=== PATIENT | male | born 1955 | race Caucasian/White ===

== ENCOUNTER 2018-08-06 22:26 | Inpatient (IN) ==
--- NOTE | 2018-08-06 23:24 | PROVIDER DOCUMENTATION ---
HPI-General Adult - General Chief Complaint: Edema Stated Complaint: EXTREMITY SWELLING Time Seen by Provider: 08/06/18 23:01 Source: patient Allergies/Adverse Reactions: Patient Allergies Allergy/AdvReac Type Severity Reaction Status Date / Time No Known Allergies Allergy Verified 08/06/18 22:47 Home Medications: Home Medication List Medication Instructions Recorded Confirmed Last Taken Type Diltiazem HCl [Diltiazem ER] 180 mg PO HS 03/19/17 03/19/17 03/18/17 History 180 MG Losartan/Hctz [Hyzaar 100/12.5 mg 08/06/18 08/06/18 Unknown History Tab] - History of Present Illness -Gen Adult Nature of Presenting Problems: Right neck/shoulder swelling since Thursday. No fever, dyspnea, dysphasia, weightloss, cp, cough. Brother has history of lymphoma. Location of Pain/Injury: reports: none Pain Radiation: reports: no radiation Quality of Pain: reports: none Onset/Duration: reports: 6 days ago Timing: reports: getting worse Context/Activities at Onset: reports: none Modifying Factors: worse with: nothing Associated Symptoms: denies: anxiety, chest pain, cough, diarrhea, dizziness, fatigue, headaches, joint pain, muscle aches, sinus congestion/drainage, nausea , shortness of breath, syncope, vomiting Similar Symptoms Previously?: No Recently seen or treated by another doctor?: No Review of Systems - Adult - REVIEW OF SYSTEMS - ADULT Constitutional: reports: no symptoms reported Eyes: reports: no symptoms reported Ears, Nose, Mouth & Throat: reports: no symptoms reported Cardiovascular: reports: no symptoms reported Respiratory: reports: no symptoms reported Gastrointestinal: reports: no symptoms reported Genitourinary: reports: no symptoms reported Musculoskeletal: reports: no symptoms reported Integumentary: reports: no symptoms reported Neurological: reports: no symptoms reported Psychiatric: reports: no symptoms reported Endocrine: reports: no symptoms reported Hematologic/Lymphatic: reports: swollen lymph nodes Allergic/Immunologic: reports: no symptoms reported All Other Systems: Reviewed and Negative Past History - Adult - PAST MEDICAL HISTORY-ADULT Review of Records: reports: Old Records Reviewed, Nursing Assessment Review, Medications Reviewed, Social history reviewed & non-contributory. Major Childhood Illnesses: reports: denies history Cardiovascular: reports: HTN Respiratory: reports: denies history Gastrointestinal: reports: denies history Obstetrical/Gynecological: reports: denies history Genitourinary: reports: denies history Musculoskeletal: reports: denies history Neurological: reports: denies history Psychiatric: reports: other (mental illness unknown etiology) Endocrine/Immune: reports: denies history Other Conditions: reports: denies history - IMMUNIZATION STATUS Childhood Immunizations: See Nurse Assessment Flu Vaccine: See Nurse Assessment - FAMILY HISTORY Family History: reviewed, not pertinent - SOCIAL HISTORY Smoking: denies Substance Use: none/never Alcohol Use Frequency: never Living Situation: family Physical Exam-General - PHYSICAL EXAM-ADULT Initial Vital Signs Reviewed: Yes - CONSTITUTIONAL General Appearance: appears well, alert, no apparent distress - EYES Eyes: pink conjunctivae - HEAD, EARS, NOSE, MOUTH & THROAT HENMT: normocephalic/atraumatic, moist mucous membranes, pharynx normal - NECK Neck: supple, other (severe swelling to right neck, supraclavicular region) - RESPIRATORY Respiratory: lungs clear, normal breath sounds - CARDIOVASCULAR Cardiovascular: normal peripheral pulses, regular rate, rhythm - GASTROINTESTINAL (ABDOMEN) Abdominal Exam: non tender, soft, no organomegaly. negative: distended - MUSCULOSKELETAL Back Exam: normal inspection Extremity: normal gait - SKIN Integumentary: normal color, normal turgor, warm/dry - NEUROLOGIC Neurologic: grossly normal - PSYCHIATRIC Psych/Mental Status: normal thought content Progress - PLAN OF CARE/RESULTS Progress/Plan/Lab Results: Vital Signs - 8 hr 08/06/18 22:41 Temperature 98.6 F Pulse Rate 79 Respiratory Rate 16 Blood Pressure 118/71 O2 Sat by Pulse Oximetry 94 L Orders Category Date Time Status Saline Loc DIRECTED Care 08/06/18 23:[address] NECK W/CONTRAST [CT] Stat Exams 08/06/18 23:[address] THORAX W/CONTRAST [CT] Stat Exams 08/06/18 23:10 Ordered AMYLASE [CHEM] Stat Lab 08/06/18 23:10 Ordered CBC WITH ELECTRONIC DIFF [HEME] Stat Lab 08/06/18 23:10 Ordered COMPREHENSIVE METABOLIC PANEL [CHEM] Stat Lab 08/06/18 23:10 Ordered checked patient who is resting comfortably, plan to transfer to [facility] where they provide surgical and oncology services to further evaluate for possible malignancy vs other Result Diagrams: 08/06/18 23:15 08/06/18 23:15 - CT/MRI 1 CT Study: Neck Impression: Abnormal (severe adenopathy; neck lesions, internal jugular vein compression) 2 CT Study: Thorax Impression: Abnormal (right cervical lymphadenopathy.) - CONSULTS/PCP/HOSPITALIST Notification #1 *Consult/PCP/Hospitalist*: Dr. Hennessy, hospitalist [facility] Time Discussed: 03:20 Reason/Comments: admit to [facility] when bed is available Consult Disposition: Admit - CHANGE OF SHIFT REPORT (ED Provider) Report Given and Care Transferred to:: Dr. Pimentel Time of Transfer: 02:23 Items Pending: Physician Consult/Arrival Departure - Departure Date of Disposition Decision: 08/07/18 Time of Disposition Decision: 03:25 DIAGNOSIS: Lymphadenopathy of right cervical region, Neck mass Leukocytosis Qualifiers: Leukocytosis type: unspecified Qualified Code(s): D72.829 - Elevated white blood cell count, unspecified Disposition: ADMITTED INPATIENT 09 Certified Medical Emergency: Emergent Condition: Stable Referrals and Follow-Ups: Jose Rafael Zhang MD [Primary Care Provider] - - Critical Care Note This patient required my direct & personal management of CC.: No Attestation - Physician/ ZAKI Attestation Patient care was provided by Advanced Practice Provider:: Yes Advanced Practice Provider:: Harman Huddleston Advanced Practice Provider documentation review:: The Mid-level provider documentation, treatment plan and medical decision making was reviewed by the physician who agrees with all treatment and medical decision making by the P. The physician spent face to face time with patient:: Yes Advanced Practice Provider documentation review:: Supervising physician onsite and consulted in the evaluation and care of this patient. The physician did have a face to face encounter with the patient.
[2018-08-06 23:56] LABS: BASO# 0.02 X1000 (0.0-0.2); BASO% 0.1 % (0.0-0.8); EOS% 3.7 % (0.0-10.0); HEMATOCRIT 43.8 % (42.0-52.0); HEMOGLOBIN 13.7 g/dL (14.0-18.0); IMM GRAN# 0.03 X1000 (0.0-0.04); IMM GRAN% 0.2 % (0.0-0.5); LYMPH# 2.62 X1000 (1.2-3.4); LYMPH% 19.3 % (20.5-51.1); MCH 31.6 PG (27-31); MCHC 31.3 g/dL (33-37); MCV 100.9 FL (81-99); MONO# 1.05 X1000 (0.11-0.59); MONO% 7.7 % (1.7-9.3); NEUT# 9.37 X1000 (1.4-6.5); PLT 269 X1000 (130-400); RBC 4.34 XMIL (4.7-6.1); RDW 14.3 % (11.5-14.5); WBC 13.59 X1000 (4.8-10.8)
[2018-08-07 00:10] LABS: ALBUMIN 3.9 g/dL (3.5-5.0); CALCIUM 9.1 mg/dL (8.8-10.2); CREATININE 1.3 mg/dL (0.7-1.2); POTASSIUM 3.5 mmol/L (3.5-5.1); TOTAL BILIRUBIN 0.5 mg/dL (0.20-1.00); TOTAL PROTEIN 7.5 g/dL (6.3-8.3)
[2018-08-07] MEDS ORDERED: NS 1,000 ML IV ONE (00:45)
--- NOTE | 2018-08-07 08:23 | Diag Imaging Result Doc PS360 ---
EXAM: CT NECK W/CONTRAST 08/06/2018 HISTORY: right neck swelling TECHNIQUE: This exam was performed using automated exposure control, adjustment of mA or kV according to patient size, and/or use of iterative reconstruction technique. COMMENT: There are no previous studies available for comparison. The visualized portion of the brain is unremarkable. The paranasal sinuses are clear. The parotid glands are symmetrical in appearance. There is massive right spinal accessory and jugular adenopathy with some areas of apparent necrosis or suppuration particularly posteriorly and spinal accessory nodes on image 17 where there are at least two cystic appearing structures the largest of which measures almost 17 mm in diameter. There is a similar appearance on image 95 just lateral to the carotid artery where there is asymmetric cystic structure measuring almost 15 mm. Multiple low density lesions are present more inferiorly in the supraclavicular region with one mass of nodes measuring as much as 4.3 cm in transverse dimension. There is some displacement of the trachea in midline structures to the left. There is considerable displacement and compression of the internal jugular vein on the right most notably on image 128 where the vein is compressed into a crescent. There are a few prominent spinal accessory and jugular nodes on the left side but nothing to the extent seen on the right. There is a right jugular chain node on image 82 with a transverse dimension of 4.5 cm. No evidence of mucosal mass is present and the epiglottis is not enlarged. There are some calcifications in the left palate seen tonsillitis. The nasopharynx is unremarkable. There are marked spondylotic changes in the cervical spine and there has been anterior fusion at C7-T1. IMPRESSION: Massive right neck adenopathy with necrotic nodes. The possibility of lymphoma should be considered. Marked compression of the right internal jugular vein. Electronically signed by Aj Norton 08/07/2018 8:21 AM
--- NOTE | 2018-08-07 08:29 | Diag Imaging Result Doc PS360 ---
EXAM: CT THORAX W/CONTRAST 08/06/2018 HISTORY: right neck/chest swelling TECHNIQUE: This exam was performed using automated exposure control, adjustment of mA or kV according to patient size, and/or use of iterative reconstruction technique. COMMENT: The massive adenopathy in the supraclavicular region on the right has been described with the CT of the neck. There is no evidence of significant mediastinal or hilar adenopathy. There is no evidence of axillary adenopathy. There is some subcutaneous edema and possible skin thickening over the upper chest on the right. This is possibly related to venous or lymphatic congestion. The superior vena cava is within normal limits. In addition to the previously described compression of the internal jugular vein on the right there may be some compression of the right subclavian vein. No abnormal fluid collections are present. There are bilateral parapelvic renal cysts as well as cysts in the inferior portion of the right hepatic lobe, the caudate lobe and adjacent right hepatic lobe. There are multiple small cysts in the left hepatic lobe. There is a ring-enhancing lesion present in the midportion of the spleen measuring 2.3 cm in diameter. There is no evidence of acute bony abnormality. There is no evidence of acute pulmonary parenchymal disease. IMPRESSION: Edematous changes in the upper chest on the right, and compression of the internal jugular and subclavian vein on the right. Apparent splenic mass. Electronically signed by Aj Norton 08/07/2018 8:27 AM
[2018-08-07] MEDS ORDERED: TYLENOL PO PRN (08:37)
[2018-08-07] MEDS: NS 1,000 ML IV SCH (11:23)
[2018-08-07 11:36] LABS: URINE SOURCE CLEAN CATCH
[2018-08-07 11:49] LABS: BILIRUBIN URINE NEGATIVE (NEGATIVE); BLOOD URINE NEGATIVE (NEGATIVE); COLOR YELLOW; GLUCOSE URINE NEGATIVE (NEGATIVE); KETONE URINE NEGATIVE (NEGATIVE); LEUKOCYTES URINE NEGATIVE (NEGATIVE); NITRITE URINE NEGATIVE (NEGATIVE); PH URINE 6.5; PROTEIN URINE TRACE mg/dL (NEGATIVE); SP GRAVITY URINE 1.032; TURBIDITY URINE CLEAR (CLEAR); UROBILINOGEN URINE NORMAL (NORMAL)
[2018-08-07 11:50] LABS: UR EPITHELIAL CELLS <10 /HPF (<10); URINE BACTERIA NEGATIVE /HPF; URINE RBC <10 /HPF (<10); URINE WBC <10 /HPF (<10)
--- NOTE | 2018-08-07 14:31 | HISTORY AND PHYSICAL ---
ADDENDUM: Patient seen and examined by myself. Full note dictated and discussed with nurse practitioner. Patient has a mass on the base on the right side of his neck. We will admit him to the hospital, place him on antibiotics, consult surgery and will follow. Please see full note. cc: Ritesh Gipson MD
--- NOTE | 2018-08-07 15:05 | GENERAL SURGERY CONSULTATION ---
DATE: 08/07/2018 TIME: 2:11 p.m. HISTORY OF PRESENT ILLNESS: Mr. Delarosa is a 63-year-old, mentally challenged gentleman who presented to the emergency department late last night with right neck swelling. He says it has only occurred over the past couple weeks. He denies any fever, chills, itching, or night sweats. His brother has the [id number] because of Mr. Delarosa's mental status. PAST MEDICAL HISTORY: He has a past history of hypertension. He apparently is under the care of Dr. Zhang. MEDICATIONS: He takes diltiazem ER 180 mg at bedtime and Hyzaar 100/12.5 daily. ALLERGIES: He has no known drug allergies. FAMILY HISTORY: May be pertinent for a lymphoma. SOCIAL HISTORY: He has not smoked in many years. Denies alcohol usage. REVIEW OF SYSTEMS: As noted above. He denies any symptoms in each subsystem. PHYSICAL EXAMINATION: Vital Signs: Afebrile. Heart rate 70, blood pressure 134/75. Neck: He has very large right neck adenopathy. It is mildly tender. His trachea is shifted to the left somewhat. HEENT: No intraoral lesions are noted. No tongue lesions are noted. Lungs: He has bilateral breath sounds. Heart: Regular rate and rhythm. Abdomen: Soft. I do not palpate any axillary adenopathy. No abdominal masses are noted. Extremities: He has no peripheral edema. Neurological: He is awake and alert. LABORATORY DATA: White count 95397, hemoglobin 13.7, hematocrit 43.8. BUN 23, creatinine 1.3. LDH 233. PLAN: The plan will be an excisional biopsy of the right neck node on 08/09/2018. I have discussed this with him and his brother. cc: Jason Jiang MD
--- NOTE | 2018-08-07 15:05 | HISTORY AND PHYSICAL ---
PRIMARY CARE PHYSICIAN: Jose Rafael Zhang CHIEF COMPLAINT: Right neck swelling. HISTORY OF PRESENT ILLNESS: Mr. Dillan Delarosa is a 63-year-old male with a medical history of mental retardation, whose brother has power of civil attorney over him and takes care of him. Also with a history of being here back in 03/2017 for at least 3 weeks where he was treated for rectal prolapse, had several surgeries, PEG tube that was placed and removed, esophageal dilatation. He had Enterobacter UTI then and even a spell of atrial fibrillation. Now he is here with complaints of right neck swelling that started this past Thursday, so for at least 6 days has been swelling but more noticeably last night around 8:00 p.m. He states he has chills but no fever. He has a little bit of a sore throat and is slightly difficult with swallowing but other than that states he has no other complaints. He presented to [facility] where they ran chest CT and a neck CT, and the neck CT shows that there was massive right neck adenopathy with necrotic nodes. The possibility of lymphoma could be considered. There is marked compression of the right internal jugular vein. Then the chest CT showed edematous changes in the upper chest on the right and compression of the internal jugular and subclavian vein on the right with apparent splenic mass. So he will be admitted. We will consult General Surgery and will consult Oncology for further evaluation and treatments. PAST MEDICAL HISTORY: 1. Hypertension. 2. Paroxysmal atrial fibrillation, currently in sinus rhythm. 3. Chronic anemia. 4. Mental retardation, being cared for by his brother who lives next to him. 5. Chronic gastritis. 6. Rectal prolapse. 7. C. difficile colitis in 2017. 8. Enterobacter UTI in 2017. 9. Paroxysmal atrial fibrillation. 10.Nonobstructive bilateral renal stones. 11.Metabolic syndrome. PAST SURGICAL HISTORY: 1. EGD and colonoscopy in 03/2017 and at that time had a polypectomy with biopsy and esophageal dilatation. 2. PEG tube placement and removal in 2017 due to at the time having inability to swallow well. 3. Rectopexy and sigmoid colon resection due to rectal prolapse. 4. Exploratory lap and retention sutures placed around the same time in 2017, post rectopexy and sigmoid colon resection. SOCIAL HISTORY: He lives close to his brother who cares for him and is the power of civil attorney. He has 5 siblings. Denies tobacco, alcohol, or illicit drug use. He currently does not work. He used to ride a 3-wheeled bicycle or tricycle but has not been riding that for about a year now. FAMILY HISTORY: Mother had chronic kidney disease and dementia and a pacemaker. Father was unknown. He at a younger age. One of his brothers, the one that cares for him, has been treated for Mantle cell and B cell lymphoma, and he claims to have heart problems as well. ALLERGIES: No known drug allergies. HOME MEDICATIONS: 1. Diltiazem 180 mg p.o. nightly. 2. Hyzaar 100/12.5 one capsule p.o. daily REVIEW OF SYSTEMS: A 14-point review of systems are complete, and all are negative except for those mentioned in the HPI. PHYSICAL EXAMINATION: VITAL SIGNS: Temperature is 97.5, heart rate 70, respiratory rate 17, blood pressure 134/75, O2 saturation is 96% on room air. He is 5 feet 10 inches tall and 189 pounds. BMI is 27.2. GENERAL: Mr. Dillan Delarosa is a 63-year-old male. He is in no acute distress. He is able to answer most questions appropriately. HEENT: Atraumatic, although there is significant swelling on the right side of the neck up into the jaw. There are palpable lymph nodes under the jaw. Pupils are equal, round, and reactive to light. Extraocular movements were intact. Mucous membranes are moist. NECK: Trachea is midline, but there are cervical lymph nodes that are very palpable and significant amount of swelling in the right neck. CARDIOVASCULAR: S1, S2. Regular rate and rhythm. No murmurs, rubs or gallops. No lower extremity edema. Plus 2 dorsalis and radial pulses. Unable to assess JVD. There is no carotid bruit. PULMONARY: Clear to auscultation with bilateral breath sounds. No accessory muscle use or work of breathing noted. GASTROINTESTINAL: Soft, nontender and nondistended. Positive bowel sounds x4. EXTREMITIES: Moves all extremities equally with full range of motion. NEUROLOGICAL: Alert and oriented x3. Follows commands. Sensory is intact. SKIN: Warm, dry and intact. DIAGNOSTIC DATA: White blood cells are 13,000, hemoglobin 13, hematocrit 43, platelet count 269. Sodium is 143, potassium 3.5, BUN is 23, creatinine 1.3, glucose 118, calcium 9.1, bilirubin 0.50, AST is 17, ALT is 14, albumin 3.9, amylase 57, lactate is 1.0. IMAGING: Chest CT with edematous changes in the right upper chest on the right and compression of the internal jugular and subclavian vein on the right, apparent splenic mass. CT with massive right neck adenopathy with necrotic nodes. The possibility of lymphoma should be considered. Marked compression of the right internal jugular vein. ASSESSMENT AND PLAN: 1. Cervical lymphadenopathy with massive right neck adenopathy, necrotic nodes, compression of right internal jugular vein and subclavian vein, along with a splenic mass which could be caused from lymphoma as a possibility. Dr. Jiang with General Surgery has been consulted, and Dr. Clare Caceres with Oncology has been consulted for further workup. 2. Leukocytosis but other than some type of mass on his spleen, there is no other real source of infection. Blood cultures have been obtained. Lactate is normal. Urinalysis has been ordered. It does show that there are some necrotic nodes in the right neck adenopathy, so maybe that could cause the elevation in white blood cells as well, but given that there is mass on the spleen could also cause it. 3. Dehydration. He will receive IV fluid hydration. Currently the creatinine is 1.3. 4. History of chronic gastritis and rectal prolapse. According to the brother who is at the bedside, he has not had any issues, no weight loss or gain. We will continue with the proton pump inhibitor. 5. History of chronic anemia, but it is stable. 6. Hypertension. We will continue home medication of Hyzaar. 7. History of atrial fibrillation, currently in sinus rhythm. Continue diltiazem. 8. Metabolic syndrome. Hemoglobin A1c that was performed 04/2017 was 6.1. Current glucose is 118, so we will repeat a hemoglobin A1c for in the morning. 9. DVT prophylaxis with SCDs. Dictated by CHELY Rawls for Ritesh Gipson MD cc: CHELY Rawls MD
[2018-08-07] MEDS: ZOFRAN IV PRN (16:43)
[2018-08-07] MEDS: MORPHINE IV PRN ×2 (16:43→18:37)
[2018-08-07] MEDS: CARDIZEM CD PO SCH (21:36)
[2018-08-08] MEDS: NS 1,000 ML IV SCH ×2 (00:37→13:32)
[2018-08-08] MEDS: PRILOSEC PO SCH (06:06)
[2018-08-08 07:21] LABS: BASO# 0.02 X1000 (0.0-0.2); BASO% 0.2 % (0.0-0.8); EOS% 3.4 % (0.0-10.0); HEMATOCRIT 39.7 % (42.0-52.0); HEMOGLOBIN 12.2 g/dL (14.0-18.0); IMM GRAN# 0.04 X1000 (0.0-0.04); IMM GRAN% 0.3 % (0.0-0.5); LYMPH# 2.19 X1000 (1.2-3.4); LYMPH% 18.4 % (20.5-51.1); MCH 31.6 PG (27-31); MCHC 30.7 g/dL (33-37); MCV 102.8 FL (81-99); MONO# 0.96 X1000 (0.11-0.59); MONO% 8.1 % (1.7-9.3); MPV 9.6 FL (7.4-10.4); NEUT% 69.6 % (42.2-75.2); PLT 264 X1000 (130-400); RBC 3.86 XMIL (4.7-6.1); RDW 14.3 % (11.5-14.5); WBC 11.91 X1000 (4.8-10.8)
[2018-08-08 07:34] LABS: ALB/GLOB RATIO 0.9; ALBUMIN 3.2 g/dL (3.5-5.0); ALKALINE PHOSPHATASE 103 U/L (32-122); BUN 17 mg/dL (8-22); CALCIUM 8.3 mg/dL (8.8-10.2); CREATININE 1.1 mg/dL (0.7-1.2); ESTIMATED GFR > 60; GLUCOSE 87 mg/dL (70-104); GOT 11 U/L (10-34); GPT 9 U/L (10-44); INR 1.05; PROTIME 14.5 Seconds (11.0-16.0); PTT 31.4 Seconds (22.3-41.8); TCO2 27 mmol/L (25-35); TOTAL BILIRUBIN 0.76 mg/dL (0.20-1.00); TOTAL PROTEIN 6.8 g/dL (6.3-8.3)
[2018-08-08 07:35] LABS: HEMOGLOBIN A1C 5.6 % (4.8-6.0)
[2018-08-08 08:03] LABS: CHLORIDE 105 mmol/L (98-107); POTASSIUM 3.4 mmol/L (3.5-5.1); SODIUM 144 mmol/L (136-145)
[2018-08-08 08:19] LABS: AGAP 12; COSMO 288
[2018-08-08] MEDS: ZOFRAN IV PRN ×3 (08:20→16:26)
[2018-08-08] MEDS: MORPHINE IV PRN ×6 (08:20→18:29)
[2018-08-08] MEDS: HYZAAR 100/12.5 MG TAB PO SCH (08:21)
--- NOTE | 2018-08-08 08:23 | GENERAL SURGERY PROGRESS NOTE ---
DATE: 08/08/2018 Mr. Delarosa is scheduled for a biopsy tomorrow for his mass of his right supraclavicular fossa. I have discussed this with him. He understands and agrees to proceed. cc: Jason Jiang MD
--- NOTE | 2018-08-08 19:16 | PROGRESS NOTE ---
DATE: 08/08/2018 INTERVAL HISTORY: Patient with moderate MR. Conversant and pleasant and follows commands. Right neck swelling stable. Still complaining of pain with eating. No new complaints. No acute events overnight. REVIEW OF SYSTEMS: Twelve point review of systems negative except as per interval history. LABS: WBC 11.9, hemoglobin 12.2, hematocrit 39.7. Sodium 144, potassium 3.4, BUN 17, creatinine 1.1. INR 1.05. OBJECTIVE: Vital Signs: T-max 98.0, pulse 77, blood pressure 121/76, O2 sat 98 % on room air. PHYSICAL EXAMINATION: General: No acute distress. Vital Signs: As above. HEENT: Large, tender swelling of right neck. Moist mucous membranes. Cardiovascular: Regular rate and rhythm. No murmurs, rubs or gallops. Pulmonary: Clear to auscultation bilaterally. Abdomen: Soft, nontender, nondistended. Bowel sounds positive. Extremities: 2+ pulses. No clubbing, cyanosis or edema. Neurologic: Cranial nerves 2-12 grossly intact. No focal motor or sensory deficits. Known MR. Skin: No new rashes or lesions noted. ASSESSMENT AND PLAN: 1. Massive right neck adenopathy with necrotic nodes. Compression of right internal jugular and subclavian veins. Also, with splenic mass highly concerning for lymphoma. Surgery planning on going to the OR for biopsy tomorrow. Dr. Caceres with Oncology following. Further workup depending on results of surgery tomorrow. 2. Leukocytosis. Aside from cervical adenopathy, no other clear sign of infection identified. Suspect this is due to his necrotic lymph nodes. Afebrile. Holding on any antibiotics unless fever or further signs of infection develops. 3. Dehydration, largely resolved with IV fluids. Creatinine improved to 1.1. Continue monitoring. 4. GERD, history of chronic gastritis. Continue PPI. 5. Anemia of chronic disease, mild and stable. Continue monitoring blood counts. 6. Paroxysmal atrial fibrillation. Has been in normal sinus rhythm during this hospitalization. Continue diltiazem. Monitor on telemetry. 7. Hyperglycemia. Has not been repeated. A1c of 5.6. No need for further workup at this time unless further hyperglycemia is noted. 8. DVT prophylaxis. SCDs. [facility]
[2018-08-08] MEDS: CARDIZEM CD PO SCH (20:50)
[2018-08-09] MEDS: NS 1,000 ML IV SCH ×2 (02:33→17:47)
[2018-08-09] MEDS: PRILOSEC PO SCH (06:02)
[2018-08-09] MEDS ORDERED: XYLOCAINE-MPF 2% ONE (10:13)
[2018-08-09] MEDS ORDERED: DIPRIVAN 1% ONE (10:13)
[2018-08-09] MEDS ORDERED: SENSORCAINE-MPF 0.5%/EPI 1:200,000 ONE (10:43)
[2018-08-09] MEDS: HYZAAR 100/12.5 MG TAB PO SCH (12:28)
--- NOTE | 2018-08-09 13:04 | OPERATIVE NOTE ---
PROCEDURE DATE: 08/09/2018 PROCEDURE: Biopsy of right cervical lymph node. SURGEON: Jason Jiang MD. MATH INTERVENTIONIST: Mary. PREOPERATIVE DIAGNOSIS: Right cervical adenopathy. POSTOPERATIVE DIAGNOSIS: Right cervical adenopathy. DESCRIPTION OF OPERATION: Satisfactory general anesthesia was achieved. An LMA was used. The right side of the neck was prepped and draped in a sterile fashion. We anesthetized the skin transversely in 0.5 Marcaine with epinephrine. We incised the skin, and carried our incision through the platysma. The external jugular vein was clamped, divided and suture ligated. We then dissected into the subcutaneous tissue and identified a portion of a large cervical node and excised a portion of the large cervical node and sent it fresh for permanent section. Satisfactory hemostasis was achieved. We took care to avoid the 11th cranial nerve injury. We then reapproximated the platysma with interrupted 3-0 Polysorb. We closed the skin with 4-0 Polysorb subcuticular stitch. Telfa and sterile OpSite was applied. He tolerated it well. He was sent to the recovery room in satisfactory condition. cc: Jason Jiang MD
--- NOTE | 2018-08-09 13:44 | PROGRESS NOTE ---
DATE: 08/09/2018 SUBJECTIVE: The patient is resting comfortably in bed. Recently had biopsy of cervical lymph node. OBJECTIVE: Vitals: Temperature 98.4 degrees, pulse 110, respiratory rate 20, blood pressure is 126/84, oxygen saturation is 98%. HEENT: Atraumatic, normocephalic. Cardiovascular: S1, S2. Respiratory: Has evidence of good air entry bilaterally. Abdomen: Soft, nontender. No masses felt. Extremities: No evidence of edema. Central nervous system: No obvious focal deficits. LABORATORIES: None. ASSESSMENT AND PLAN: 1. Right cervical lymphadenopathy. The patient is status post lymph node biopsy. We will await report. 2. Leukocytosis may be related to infection. Follow up on blood cultures. 3. Gastroesophageal reflux disease. Continue proton pump inhibitor. 4. Anemia of chronic disease. Follow up on hemoglobin and hematocrit. Transfuse packed red blood cells if needed. 5. Paroxysmal atrial fibrillation. Continue diltiazem. 6. Deep vein thrombosis prophylaxis. Sequential compression devices. cc: Ramon Ga MD
--- NOTE | 2018-08-09 16:18 | HEMO/ONC CONSULTATION ---
DATE: 08/09/2018 SOURCE OF CONSULTATION: Patient seen in consultation at the request of Dr. Ramon Ga. REASON FOR CONSULTATION: Lymphadenopathy. HISTORY OF PRESENT ILLNESS: Mr. Delarosa is a 63-year-old gentleman who was in his usual state of health when he was noting increasing right neck swelling. He and his brother who is with him today report that pain had been present for approximately 1 week, but progressively got more swollen on the day of admission. He denied any fever, but has had a subjective feeling of being chilled without any shaking chills. He denies any night sweats or weight loss. PAST MEDICAL HISTORY: Significant for kidney stones, atrial fibrillation, rectal prolapse, C difficile colitis, mental retardation, chronic anemia, hypertension. PAST SURGICAL HISTORY: Sigmoid colon resection and rectopexy due to rectal prolapse, PEG tube replacement and removal in 2016, polypectomy during EGD and colonoscopy March 2017. SOCIAL HISTORY: He lives next door to his brother who cares for him and has power of criminal attorney. He denies any tobacco, alcohol, or illicit drug use. ALLERGIES: No known drug allergies. FAMILY MEDICAL HISTORY: Dad young of unknown causes. Mom had renal disease and rhythm problems requiring a pacemaker. His brother had an autologous stem cell transplant in [place] for mantle cell lymphoma and has cardiac disease. MEDICATIONS: Reviewed per the chart. REVIEW OF SYSTEMS: Pertinent positives and negatives as per HPI. All other review of systems are negative. PHYSICAL EXAMINATION: Vital Signs: At the time of consultation, temperature 99.1 degrees, pulse 71, respiratory rate 20, blood pressure 120/65, O2 saturation 97% on room air. General: This is a well-developed, well-nourished, man in no acute distress. His brother is at the bedside during consultation. Eyes: Sclerae anicteric. Cardiovascular: Regular rate and rhythm. Normal S1 and S2. No murmurs, rubs, or gallops. Pulmonary: Lungs clear to auscultation bilaterally without wheezes, rales, or rhonchi. Abdomen: Obese but soft, nontender, and nondistended with normoactive bowel sounds. Lymphatic examination: Right neck with palpable submandibular, cervical, and supraclavicular adenopathy that is visible and prominent with lymph nodes 3 to 5 cm, solely on the right side. No palpable left-sided cervical or supraclavicular adenopathy. No palpable axillary or inguinal adenopathy. Extremities: No clubbing or cyanosis. Trace bilateral edema noted. 2+ pulses x4. Neurological: Alert and orient x3. He responds appropriately to questions and answers appropriately. Brother is able to assist with details of dates and medication descriptions. LABORATORY DATA: White count 11.9, hemoglobin 12.2, platelet count 264,000. INR 1.05. Potassium 3.4, creatinine 1.1. A1c 5.6. Uric acid 8.8, calcium 8.3, mag 2.0, total bilirubin 0.76, alkaline phosphatase 103, LDH 233, albumin 3.2. TSH 0.61. Urinalysis with trace protein. IMAGING: Chest CT, 08/06/2017, shows edematous changes in the upper chest on the right and compression of internal jugular and subclavian band veins on the right, with no involvement of the SVC. There is a 2.3 cm ring-enhancing lesion present in the midportion of the spleen and multiple small cysts in the left hepatic lobe. CT, 08/06/2017, shows massive right spinal accessory and jugular adenopathy with some apparent areas of necrosis, particularly posteriorly, with 1 node measuring as much as 4.3 cm in the transverse dimension, in the right upper supraclavicular region. There are a few prominent spinal accessory and jugular nodes on the left, but nothing to the extent seen on the right. No mucosal mass, and the epiglottis is not enlarged. ASSESSMENT AND PLAN: 1. Right neck adenopathy: We discussed the differential diagnosis of adenopathy, which is certainly suspicious for malignancy. It appears to be likely lymphoma versus head and neck malignancy. I will await biopsy, which was performed earlier today. We discussed natural history, prognosis, and treatment in general terms of lymphoma. The patient's brother is quite adept at understanding this as he has had mantle cell lymphoma himself. I will follow up with the patient as soon as results are available, to discuss further treatment planning. 2. Splenic lesion: Possibly related to underlying diagnosis. Further workup pending the results of the biopsy from earlier today. 3. Anemia: Mild. Will check iron studies, B12, and folic acid, and replete those as indicated. 4. Elevated uric acid: Monitor. He is at risk for tumor lysis syndrome if he does indeed have lymphoma and needs treatment. Thank you for this consultation and the opportunity to participate in the care of this very pleasant patient. We will follow along and leave further recommendations as his biopsy results are available. cc: MD Ramon Rincon MD
[2018-08-09] MEDS: ZOFRAN IV PRN (17:47)
[2018-08-09] MEDS: CARDIZEM CD PO SCH (22:41)
[2018-08-09] MEDS: TESSALON PO PRN (22:41)
[2018-08-10] MEDS: PRILOSEC PO SCH (06:04)
[2018-08-10] MEDS: NS 1,000 ML IV SCH (06:07)
[2018-08-10 07:33] LABS: BASO# 0.04 X1000 (0.0-0.2); BASO% 0.4 % (0.0-0.8); HEMATOCRIT 37.4 % (42.0-52.0); HEMOGLOBIN 11.8 g/dL (14.0-18.0); IMM GRAN# 0.02 X1000 (0.0-0.04); IMM GRAN% 0.2 % (0.0-0.5); LYMPH# 1.16 X1000 (1.2-3.4); LYMPH% 11.9 % (20.5-51.1); MCH 31.7 PG (27-31); MCHC 31.6 g/dL (33-37); MCV 100.5 FL (81-99); MONO# 0.76 X1000 (0.11-0.59); MONO% 7.8 % (1.7-9.3); MPV 9.3 FL (7.4-10.4); NEUT# 7.58 X1000 (1.4-6.5); NEUT% 77.7 % (42.2-75.2); PLT 305 X1000 (130-400); RBC 3.72 XMIL (4.7-6.1); RDW 14.1 % (11.5-14.5); WBC 9.76 X1000 (4.8-10.8)
[2018-08-10 08:06] LABS: CALCIUM 8.7 mg/dL (8.8-10.2); CREATININE 1.4 mg/dL (0.7-1.2); MAGNESIUM 1.8 mg/dL (1.5-2.7); PHOSPHORUS 2.4 mg/dL (2.7-4.5); POTASSIUM 3.1 mmol/L (3.5-5.1)
[2018-08-10] MEDS: HYZAAR 100/12.5 MG TAB PO SCH (09:58)
[2018-08-10] MEDS: TESSALON PO PRN (10:03)
[2018-08-10] MEDS ORDERED: SODIUM PHOSPHATE 20 MMOL in NS 250 ML IV ONE (10:38)
[2018-08-10] MEDS ORDERED: POTASSIUM CHLORIDE 60 MEQ in NS 500 ML IV ONE (10:38)
--- NOTE | 2018-08-10 11:31 | Diag Imaging Result Doc PS360 ---
EXAM: ABDOMEN FLAT/UPRIGHT 08/10/2018 HISTORY: constipation TECHNIQUE: Flat and upright abdomen COMMENT: There is some gas and stool in the colon. Small bowel and stomach are not distended. There are numerous phleboliths in the pelvis. Compared to 05/14/2017 there is more stool and less gas in the colon. IMPRESSION: Constipation, particularly in the right colon. Electronically signed by Aj Norton 08/10/2018 11:28 AM
[2018-08-10] MEDS: TUSSIONEX LIQUID PO SCH (16:28)
--- NOTE | 2018-08-10 16:34 | Diag Imaging Result Doc PS360 ---
CHEST-PORTABLE - 08/10/2018 INDICATION: dyspnea COMPARISON: 04/30/2017 FINDINGS: The lungs are normally expanded and clear. Heart size and mediastinal contours are normal. No pneumothorax or pleural effusion. IMPRESSION: Negative exam. Electronically signed by Jhonatan Recinos 08/10/2018 4:32 PM
[2018-08-10] MEDS ORDERED: LINZESS PO ONE (16:59)
[2018-08-10 18:53] LABS: URINE SOURCE CLEAN CATCH
[2018-08-10 18:58] LABS: BILIRUBIN URINE NEGATIVE (NEGATIVE); BLOOD URINE MODERATE (NEGATIVE); COLOR YELLOW; GLUCOSE URINE NEGATIVE (NEGATIVE); KETONE URINE 60 mg/dL (NEGATIVE); LEUKOCYTES URINE NEGATIVE (NEGATIVE); NITRITE URINE NEGATIVE (NEGATIVE); PH URINE 5.5; PROTEIN URINE 30 mg/dL (NEGATIVE); SP GRAVITY URINE 1.011; TURBIDITY URINE CLEAR (CLEAR); UROBILINOGEN URINE NORMAL (NORMAL)
[2018-08-10 19:00] LABS: UR EPITHELIAL CELLS <10 /HPF (<10); URINE BACTERIA NEGATIVE /HPF; URINE RBC <10 /HPF (<10); URINE WBC <10 /HPF (<10)
[2018-08-10 19:12] LABS: UR CREAT RANDOM 73.9 mg/dL (14-26); UR PROT RANDOM 39.7 mg/dL
--- NOTE | 2018-08-10 19:14 | PROGRESS NOTE ---
DATE: 08/10/2018 SUBJECTIVE: The patient complains of nausea, vomiting and abdominal pain. OBJECTIVE: Vital Signs: Temperature 100.4 degrees, blood pressure 126/70, heart rate 115, respirations 18, O2 saturation 94% on room air. General: This is a morbidly obese male lying in bed in no acute distress. Heart: S1, S2 normal. Lungs: Equal air entry bilaterally. No wheezing, no rales, no rhonchi. Abdomen: Positive bowel sounds. Soft, mildly distended. Extremities: No edema, no cyanosis, no calf tenderness. Neuro: The patient is alert and oriented x3. LABS: Potassium 3.1, creatinine 1.4, phosphorus 2.4, magnesium 1.8. ASSESSMENT AND PLAN: 1. Fever. Will order blood cultures and a urinalysis. The chest x-ray done this morning is unremarkable. If the patient continues to spike a temperature will start empiric antibiotic therapy. 2. Nausea and vomiting with constipation. Will start the patient on scheduled laxative therapy. 3. Acute kidney injury. Will discontinue the losartan hydrochlorothiazide combination drug and start the patient on IV fluids. 4. Lymphadenopathy status post right cervical lymph node biopsy. The pathology report is pending. Oncology is following. 5. Morbid obesity. Aware. 6. Paroxysmal atrial fibrillation. Continue on Cardizem CD. 7. Gastrointestinal prophylaxis. Continue on Prilosec. 8. Deep vein thrombosis prophylaxis. Will start the patient on heparin. cc: Elena Zaman MD MTDD
[2018-08-10] MEDS: MAXIPIME 1 GM in NS 50 ML IV SCH (20:40)
[2018-08-10] MEDS: MIRALAX PO SCH (20:40)
[2018-08-10] MEDS: CARDIZEM CD PO SCH (20:40)
[2018-08-10] MEDS: ZYVOX PO SCH (20:40)
[2018-08-10] MEDS: HEPARIN SUBQ SCH (20:40)
--- NOTE | 2018-08-11 02:54 | GENERAL SURGERY PROGRESS NOTE ---
DATE: 08/10/2018 Mr. Delarosa's wound is satisfactory. His path report is still pending. He is doing satisfactorily. cc: Jason Jiang MD
[2018-08-11] MEDS: TUSSIONEX LIQUID PO SCH ×2 (05:47→16:34)
[2018-08-11] MEDS: NS 1,000 ML IV SCH ×2 (05:47→08:12)
[2018-08-11 07:36] LABS: BASO# 0.03 X1000 (0.0-0.2); BASO% 0.4 % (0.0-0.8); EOS# 0.07 X1000 (0.0-0.7); HEMATOCRIT 37.6 % (42.0-52.0); HEMOGLOBIN 11.8 g/dL (14.0-18.0); IMM GRAN# 0.02 X1000 (0.0-0.04); IMM GRAN% 0.3 % (0.0-0.5); LYMPH# 1.89 X1000 (1.2-3.4); LYMPH% 25.8 % (20.5-51.1); MCH 31.7 PG (27-31); MCHC 31.4 g/dL (33-37); MCV 101.1 FL (81-99); MONO# 0.76 X1000 (0.11-0.59); MONO% 10.4 % (1.7-9.3); MPV 9.5 FL (7.4-10.4); NEUT# 4.56 X1000 (1.4-6.5); NEUT% 62.1 % (42.2-75.2); PLT 302 X1000 (130-400); RBC 3.72 XMIL (4.7-6.1); RDW 14.6 % (11.5-14.5); WBC 7.33 X1000 (4.8-10.8)
[2018-08-11 08:04] LABS: CALCIUM 8.9 mg/dL (8.8-10.2); CREATININE 1.3 mg/dL (0.7-1.2); POTASSIUM 3.6 mmol/L (3.5-5.1)
[2018-08-11] MEDS: MAXIPIME 1 GM in NS 50 ML IV SCH ×2 (08:12→21:09)
[2018-08-11] MEDS: ZYVOX PO SCH ×2 (09:12→21:09)
[2018-08-11] MEDS: PRILOSEC PO SCH (09:13)
[2018-08-11] MEDS: MIRALAX PO SCH ×2 (09:13→21:09)
[2018-08-11] MEDS: HEPARIN SUBQ SCH ×2 (09:13→21:09)
[2018-08-11] MEDS ORDERED: MOVANTIK PO ONE (10:10)
[2018-08-11] MEDS: TESSALON PO PRN ×2 (11:03→21:09)
[2018-08-11] MEDS: SOLU-MEDROL IV SCH ×2 (11:03→21:27)
--- NOTE | 2018-08-11 14:49 | Diag Imaging Result Doc PS360 ---
EXAM: CT ABD/PELVIS W/ORAL CONT ONLY 08/11/2018 HISTORY: abdominal pain/pancreatitis TECHNIQUE: This exam was performed using automated exposure control, adjustment of mA or kV according to patient size, and/or use of iterative reconstruction technique. COMMENT: The current examination is compared with 04/23/2017. There is motion artifact. There is some apparent atelectasis in the right lower lobe posteriorly which is improved since the previous examination, although it was not present on the CT of the chest dated 08/07/2018. The pancreas is essentially unchanged in appearance since the previous thoracic study of 08/07/2018. The spleen and adrenal glands are grossly normal in appearance. There is a cyst in the inferior liver. There are no apparent gallstones. There is a tiny calyceal stone in the mid left collecting system. There is also an apparent small stone in the lower pole of the right collecting system. There are parapelvic cysts bilaterally. The ureters are not distended. There is no evidence of ureterolithiasis. There is contrast throughout much of the colon. The small bowel is not distended. There is no evidence of abdominal aortic aneurysm or significant adenopathy. Pelvis: The appendix is not distended. There are postsurgical changes present in the distal colon. There is no evidence of free fluid or significant adenopathy. There are fat-containing inguinal hernias bilaterally. There are degenerative changes in the lumbar spine. IMPRESSION: No evidence of pancreatitis. Bibasilar atelectasis. Bilateral nephrolithiasis. Electronically signed by Aj Norton 08/11/2018 2:46 PM
--- NOTE | 2018-08-11 17:20 | ECHO REPORT ---
ORDER DATE: 08/11/2018 INDICATIONS: A patient with possible lymphoma, history of atrial fibrillation, hypertension. M-MODE MEASUREMENTS: Left ventricle end diastole: 5.4 cm. Left ventricle end systole: 3.4 cm. Posterior wall: 1.2 cm. Interventricular septum: 1.2 cm. Left atrium: 4.5 cm. Aortic root: 3.4 cm. SUMMARY OF 2-DIMENSIONAL IMAGIN. The study is technically difficult. 2. Ejection fraction estimated at 57% to 63%. No convincing wall motion abnormality noted. 3. The study is difficult. Right ventricle appears to be normal. Atria appear to be normal. 4. Mitral valve looks normal. Color flow mapping unremarkable. 5. Aortic valve looks grossly normal. Color flow mapping unremarkable. 6. Pulmonic valve looks normal. Color flow mapping unremarkable. 7. Tricuspid valve shows mild degree of regurgitation. 8. Inferior vena cava not dilated. 9. Pulmonary artery pressure estimated at 37 mmHg. 10.No pericardial effusion, mass and no thrombus. Clinical correlation recommended. cc: MD Clare Marshall MD
[2018-08-11] MEDS: CARDIZEM CD PO SCH (21:09)
[2018-08-11] MEDS: COLACE PO SCH (21:10)
[2018-08-11] MEDS: LACTULOSE PO SCH (21:26)
--- NOTE | 2018-08-11 22:41 | PROGRESS NOTE ---
DATE: 08/11/2018 SUBJECTIVE: The patient is resting comfortably in bed. He denies having any nausea, vomiting, or abdominal pain. He states that his last bowel movement was yesterday. OBJECTIVE: Vital Signs: Temperature 98.2 degrees, blood pressure 133/84, heart rate 68, respirations 18, O2 saturation 97% on room air. General: This is an elderly male lying in bed, in no acute distress. Heart: S1, S2 normal. Regular rate and rhythm. Lungs: Equal air entry bilaterally. No crackles. No rales. Abdomen: Positive bowel sounds. Soft, nontender, nondistended. Extremities: No edema. No cyanosis. Neurologic: The patient is alert and oriented x3. LABORATORIES: White blood cell count 7.3, hemoglobin 11, hematocrit 37, platelets 302,000. Sodium 138, potassium 3.6, chloride 101, CO2 of 23, BUN 19, creatinine 1.3, glucose 72. Lipase 163. ASSESSMENT AND PLAN: 1. Fever. The patient is afebrile at this time. So far, the blood cultures remain negative. The patient is on empiric antibiotic therapy. No obvious source of infection has been found. 2. Constipation. Continue with scheduled laxative therapy. 3. Lymphadenopathy, status post right cervical lymph node biopsy. The pathology report is pending. Oncology is following. 4. Acute kidney injury. Slightly improved. 5. Paroxysmal atrial fibrillation. Continue on Cardizem CD. 6. Gastrointestinal prophylaxis. Continue on Prilosec. 7. Deep vein thrombosis prophylaxis. Continue on heparin. cc: Elena Zaman MD
--- NOTE | 2018-08-12 00:54 | HEMO/ONC PROGRESS NOTE ---
DATE: 08/11/2018 SUBJECTIVE: Mr. Delarosa is lying in his hospital bed. He is in no acute distress at this time. OBJECTIVE: Vital signs: Temperature 98.5 degrees, heart rate is 102, respirations 15, blood pressure 121/62, O2 saturation 94% on room air. LABORATORIES AND STUDIES: White blood cells 7.33, hemoglobin 11.8, hematocrit 37.6, platelet count 302,000. Sodium 138, potassium 3.6, chloride 101, CO2 of 23, BUN 19, creatinine 1.3, glucose 72. PHYSICAL EXAMINATION: Cardiovascular: S1, S2 heard. No murmurs, gallops, or rubs appreciated. Respiratory: Chest is clear with normal respiratory effort. Gastrointestinal : Abdomen is soft with positive bowel sounds. Extremities: Some trace edema. Lymphatics: The patient has a large, right-sided mass/palpable lymphadenopathy. He has previously had a biopsy, and the incision over it is well healed. ASSESSMENT AND PLAN: 1. Right neck adenopathy. Preliminary pathology is revealing a high-grade lymphoma. Further testing is still pending. We likely will not know the final report until hopefully Thursday. In the meantime, we are going to prepare the patient to receive chemotherapy. We are going to go ahead and order an echo and plan to discuss with the patient port placement. The patient's brother, who is his power of employee benefits attorney, has been called and updated. 2. Splenic lesion. Likely related to his underlying diagnosis. Final diagnosis is pending. 3. Anemia. We will continue to monitor and replete her vitamins as indicated. 4. Elevated uric acid. We will need to monitor closely. He will be monitored closely throughout treatment for tumor lysis syndrome. Currently his creatinine is stable, and electrolytes are within normal limits. Dictated by JESSY Horton for Clare Caceres MD cc: Clare Caceres MD I have seen and examined the patient and the above note reflects my history, physical, assessment and plan. Clare SEARS
[2018-08-12] MEDS: LACTULOSE PO SCH ×3 (04:54→20:44)
[2018-08-12] MEDS: TUSSIONEX LIQUID PO SCH ×2 (04:54→15:49)
[2018-08-12] MEDS: LINZESS PO SCH (06:23)
[2018-08-12] MEDS: PRILOSEC PO SCH (06:23)
[2018-08-12 07:28] LABS: BASO# 0.01 X1000 (0.0-0.2); BASO% 0.2 % (0.0-0.8); EOS# 0.02 X1000 (0.0-0.7); EOS% 0.3 % (0.0-10.0); HEMATOCRIT 43.1 % (42.0-52.0); HEMOGLOBIN 13.8 g/dL (14.0-18.0); IMM GRAN# 0.02 X1000 (0.0-0.04); IMM GRAN% 0.3 % (0.0-0.5); LYMPH# 1.45 X1000 (1.2-3.4); LYMPH% 23.2 % (20.5-51.1); MCH 31.3 PG (27-31); MCV 97.7 FL (81-99); MONO% 3.2 % (1.7-9.3); MPV 9.7 FL (7.4-10.4); NEUT# 4.54 X1000 (1.4-6.5); NEUT% 72.8 % (42.2-75.2); PLT 355 X1000 (130-400); RBC 4.41 XMIL (4.7-6.1); RDW 14.2 % (11.5-14.5); WBC 6.24 X1000 (4.8-10.8)
[2018-08-12 07:54] LABS: AGAP 17; BUN 21 mg/dL (8-22); CALCIUM 9.1 mg/dL (8.8-10.2); CHLORIDE 103 mmol/L (98-107); COSMO 289; CREATININE 1.2 mg/dL (0.7-1.2); ESTIMATED GFR > 60; GLUCOSE 154 mg/dL (70-104); POTASSIUM 3.9 mmol/L (3.5-5.1); SODIUM 142 mmol/L (136-145); TCO2 22 mmol/L (25-35)
--- NOTE | 2018-08-12 07:55 | Diag Imaging Result Doc PS360 ---
EXAM: CHEST-2 VIEWS 08/12/2018 HISTORY: dyspnea/cough TECHNIQUE: PA and lateral chest COMMENT: There is no evidence of acute cardiac or pulmonary disease. Compared to the previous study of 08/10/2018 there has been no significant change. IMPRESSION: Stable chest. Electronically signed by Aj Norton 08/12/2018 7:53 AM
[2018-08-12] MEDS: MIRALAX PO SCH ×2 (08:36→21:49)
[2018-08-12] MEDS: NORCO-7.5 PO PRN ×2 (08:36→12:56)
[2018-08-12] MEDS: MAXIPIME 1 GM in NS 50 ML IV SCH ×2 (08:37→21:49)
[2018-08-12] MEDS: COLACE PO SCH ×2 (08:38→20:44)
[2018-08-12] MEDS: ZYVOX PO SCH ×2 (08:38→20:44)
[2018-08-12] MEDS: HEPARIN SUBQ SCH (08:39)
[2018-08-12] MEDS: SOLU-MEDROL IV SCH ×3 (08:39→22:14)
[2018-08-12] MEDS: MORPHINE IV PRN ×2 (10:54→15:49)
[2018-08-12] MEDS: ZYLOPRIM PO SCH ×2 (10:58→20:44)
[2018-08-12] MEDS: TESSALON PO PRN (12:56)
[2018-08-12] MEDS ORDERED: KEFZOL 1 GM/D5W 1 GM/50 ML IVPB IV ONE (13:03)
[2018-08-12] MEDS: NS 1,000 ML IV SCH ×2 (13:06)
--- NOTE | 2018-08-12 14:00 | PROGRESS NOTE ---
DATE: 08/12/2018 SUBJECTIVE: The patient is resting comfortably in bed. He has no complaints at this time. OBJECTIVE: Vital Signs: Temperature 97.9 degrees, blood pressure 124/79, heart rate 64, respirations 21, O2 saturation is 95% on room air. General: This is a morbidly obese male, lying in bed, in no acute distress. Heart: S1, S2 normal. Regular rate and rhythm. Lungs: Expiratory wheezes. No crackles. Abdomen: Positive bowel sounds. Soft, nontender, nondistended. Extremities: No edema. No cyanosis. Neurologic: The patient is alert and oriented x3. LABS: Hemoglobin 13, hematocrit 43, platelets 355,000. Sodium 142, potassium 3.9, chloride 103, BUN 21, creatinine 1.2, glucose 154. ASSESSMENT AND PLAN: 1. Mantle cell lymphoma. The patient is scheduled to have a Port-A-Cath placed tomorrow by General Surgery. Oncology will follow up with the patient upon discharge to discuss the treatment plan. 2. Constipation. Improved. Continue with scheduled laxative therapy. 3. Acute kidney injury. Improved. 4. Paroxysmal atrial fibrillation. Continue on Cardizem CD. 5. Gastrointestinal prophylaxis. Continue on Prilosec. 6. Deep vein thrombosis prophylaxis. We will hold the heparin due to the planned procedure tomorrow. 7. Disposition. The patient will likely be discharged home after the Port-A- Cath placement tomorrow. cc: Elena Zaman MD MTDD
[2018-08-12] MEDS: CARDIZEM CD PO SCH (20:44)
[2018-08-13] MEDS: NS 1,000 ML IV SCH (04:01)
[2018-08-13] MEDS: LACTULOSE PO SCH ×2 (04:02→13:34)
[2018-08-13] MEDS: TUSSIONEX LIQUID PO SCH ×2 (04:02→15:18)
[2018-08-13] MEDS: PRILOSEC PO SCH (06:08)
[2018-08-13] MEDS: LINZESS PO SCH (06:08)
[2018-08-13] MEDS ORDERED: KEFZOL 1 GM/D5W 1 GM/50 ML IVPB ONE ×2 (07:01→09:49)
[2018-08-13 07:29] LABS: AGAP 15; BUN 20 mg/dL (8-22); CALCIUM 8.4 mg/dL (8.8-10.2); CHLORIDE 107 mmol/L (98-107); COSMO 293; ESTIMATED GFR > 60; GLUCOSE 169 mg/dL (70-104); POTASSIUM 3.9 mmol/L (3.5-5.1); SODIUM 144 mmol/L (136-145); TCO2 22 mmol/L (25-35)
--- NOTE | 2018-08-13 07:51 | GENERAL SURGERY PROGRESS NOTE ---
DATE: 08/13/2018 SUBJECTIVE: Mr. Delarosa's pathology revealed a mantle cell lymphoma. We will plan to proceed with port placement. I have discussed this with him, and we have him on the schedule for today for port placement. cc: Jason Jiang MD
[2018-08-13] MEDS: MAXIPIME 1 GM in NS 50 ML IV SCH (08:12)
[2018-08-13] MEDS: COLACE PO SCH (08:13)
[2018-08-13] MEDS: ZYVOX PO SCH (08:13)
[2018-08-13] MEDS: ZYLOPRIM PO SCH (08:13)
[2018-08-13] MEDS: NORCO-7.5 PO PRN ×3 (08:13→17:24)
[2018-08-13] MEDS: MIRALAX PO SCH (08:14)
[2018-08-13] MEDS: SOLU-MEDROL IV SCH (08:14)
[2018-08-13] MEDS ORDERED: DIPRIVAN 1% ONE (09:53)
[2018-08-13] MEDS ORDERED: XYLOCAINE-MPF 2% ONE (09:53)
[2018-08-13] MEDS ORDERED: ROBINUL ONE (09:54)
[2018-08-13] MEDS ORDERED: XYLOCAINE 1%/EPI 1:100,000 ONE (10:00)
[2018-08-13] MEDS ORDERED: NS 250 ML ONE (10:00)
[2018-08-13] MEDS ORDERED: TORADOL ONE (10:30)
[2018-08-13] MEDS ORDERED: KEFZOL ONE (10:33)
--- NOTE | 2018-08-13 10:59 | OPERATIVE NOTE ---
PROCEDURE DATE: 08/13/2018 NAME OF PROCEDURE: Placement a left subclavian port with fluoroscopic guidance. SURGEON: Jason Jiang MD. ASSEMBLING MOTOR BUILDER: Sheyla. PREOPERATIVE DIAGNOSIS: Mantle cell lymphoma. POSTOPERATIVE DIAGNOSIS: Mantle cell lymphoma. DESCRIPTION OF PROCEDURE: After satisfactory general anesthesia was achieved, an LMA was used. The left upper anterior chest and neck were prepped and draped in a sterile fashion. We anesthetized the skin of the deltopectoral groove using 1% lidocaine with epinephrine. We incised the skin, achieved satisfactory hemostasis electrocautery. We then developed the subcutaneous pocket that would admit the port. We accessed the left subclavian vein and passed the guidewire under fluoroscopic guidance into the superior vena cava. We then passed the dilator and introducer sheath over the guidewire. We removed the dilator and guidewire, and introduced the polyurethane catheter to the sheath to the junction of the right atrium. We cut the catheter to the appropriate length, passed it on the stem of the port. We locked it in position. We placed the port within the pocket. We secured the port in the pocket with a 2-0 silk through the subcutaneous tissue and the rim of the port. We irrigated out the port pocket with Kefzol-impregnated saline. We then placed 3-0 Polysorb in the subcutaneous tissue. We accessed the port through the skin. It aspirated and irrigated easily. We gave the patient 4 mL of Hep-Lock. We then closed the skin with a 4-0 Polysorb subcuticular stitch. Telfa and sterile OpSite was applied. He tolerated it well. Was sent to the recovery room in satisfactory condition. cc: Jason Jiang MD
[2018-08-13 11:12] LABS: HEPATITIS PROFILE ACUTE SEE COMMENTS
[2018-08-13 11:26] VITALS: BP 124/85
[2018-08-13] MEDS: MORPHINE IV PRN (14:30)
--- NOTE | 2018-08-13 17:51 | HEMO/ONC PROGRESS NOTE ---
DATE: 08/13/2018 Patient's pathology came back as mantle cell lymphoma. Patient is getting a port today. We have ordered a hepatitis panel is currently pending. The plan is for the patient to come to our office next week for a PET scan and then to initiate chemotherapy. We are planning on giving him bendamustine and Rituxan. He will need to continue with allopurinol which has been started in the hospital. He will need to continue this once he is at home. This is to protect against tumor lysis syndrome. Dictated by JESSY Horton for Clare Caceres MD cc: Clare Caceres MD
--- NOTE | 2018-08-14 04:51 | DISCHARGE SUMMARY ---
ADMISSION DATE: 08/07/2018 DISCHARGE DATE: 08/13/2018 FINAL DISCHARGE DIAGNOSES: 1. Mantle cell lymphoma. 2. Acute kidney injury. 3. Constipation. 4. Gout. 5. Paroxysmal atrial fibrillation. 6. Morbid obesity. CONSULTATIONS REQUESTED DURING THIS HOSPITAL STAY: 1. Oncology consultation with Dr. Caceres. 2. General Surgery consultation with Dr. Jiang. PROCEDURES PERFORMED DURING THIS HOSPITAL STAY: Placement of a left subclavian port with fluoroscopic guidance. HOSPITAL COURSE: Mr. Delarosa is a 63-year-old male with a history of morbid obesity, paroxysmal atrial fibrillation, hypertension, and mental retardation, who presented to the ER with swelling in the right neck. A CT of the chest was done that revealed edema in the upper chest and compression of the internal jugular and subclavian vein on the right as well as a splenic mass. Also, a neck CT was done, that revealed massive right neck adenopathy with necrotic nodes. In light of these findings, the patient was transferred to [facility] for an oncology evaluation. The patient was then seen by the general surgeon, who performed a biopsy of the right cervical lymph node. The patient was noted to have gout, and allopurinol was started. The pathology report revealed mantle cell lymphoma. As a result of this diagnosis, the patient then had a right subclavian port inserted on August 13, 2018. The patient is clinically stable for discharge home today. The patient will follow up with Dr. Caceres as scheduled by her clinic to discuss treatment options. DISCHARGE MEDICATIONS: 1. Allopurinol 100 mg p.o. daily. 2. MiraLAX 17 g p.o. twice a day. 3. Thonotosassa 5/325 one tab oral every 6 hours p.r.n. 4. Diltiazem ER 180 mg p.o. at bedtime. 5. Hyzaar 1 capsule oral daily. cc: Elena Zaman MD
== END 2018-08-13 18:38 | disposition home or self-care (01) | DRG 824 ==
LOC: P.ED 22:26 → EDIPHOLD 08-07 03:34 → SUATTDRO 08-07 03:34 → 3N 08-07 06:29
PROVIDERS: ATTEND Internal Medicine
CPT/HCPCS: 70491; 71010; 71020; 71045; 71046; 71260; 74019; 74020; 74176; 77001; 80048; 80053; 80074; 81001; 82150; 82570; 83036; 83605; 83615; 83690; 83735; 83935; 84100; 84156; 84300; 84443; 84550; 85025; 85610; 85651; 85730; 86140; 87040; 87205; 88305; 93308; 94761; 94799; 97161; 99285; A9270; C1788; J0690; J0692; J1644; J1885; J2270; J2405; J2920; J3480; J7030; J7040; J7050; Q9967

== ENCOUNTER 2019-11-01 21:06 | Inpatient (IN) ==
[2019-11-01] MEDS ORDERED: DUONEB (A & A) INH ONE (21:13)
[2019-11-01] MEDS ORDERED: MAGNESIUM SULFATE 1 GM/D5W 1 GM/100 ML IVPB IV ONE (21:14)
[2019-11-01 21:23] LABS: BE -0.7 mmoll (-3.0-3.0); BLOOD TYPE ARTERIAL; HCO3-(ACT) 24.3 mmoll (20.0-26.0); O2(CT) 21.4 mL/dL (15.0-23.0); O2HB 93.8 % (95.0-99.0); PCO2(98.6) 46 mmHg (35-45); PO2(98.6) 79 mmHg (60-100); SAMPLE BLOOD; SAO2 96.8 % (95.0-100.0); THB 16.2 g/dL (11.5-17.4); pH(98.6) 7.35 (7.35-7.45)
[2019-11-01 21:27] LABS: MODALITY CANNULA
[2019-11-01 21:28] LABS: ALLEN TEST YES
[2019-11-01] MEDS ORDERED: VENTOLIN HFA INH ONE (21:41)
[2019-11-01 21:44] LABS: BASO# 0.04 X1000 (0.0-0.2); BASO% 0.3 % (0.0-0.8); EOS# 0.19 X1000 (0.0-0.7); EOS% 1.4 % (0.0-10.0); HEMATOCRIT 47.2 % (42.0-52.0); HEMOGLOBIN 14.9 g/dL (14.0-18.0); IMM GRAN# 0.12 X1000 (0.0-0.04); IMM GRAN% 0.9 % (0.0-0.5); LYMPH# 1.82 X1000 (1.2-3.4); MCH 33.1 PG (27-31); MCHC 31.6 g/dL (33-37); MCV 104.9 FL (81-99); MONO# 0.67 X1000 (0.11-0.59); MONO% 4.8 % (1.7-9.3); MPV 10.5 FL (7.4-10.4); NEUT# 11.15 X1000 (1.4-6.5); NEUT% 79.6 % (42.2-75.2); PLT 188 X1000 (130-400); RDW 15.5 % (11.5-14.5); WBC 13.99 X1000 (4.8-10.8)
[2019-11-01] MEDS ORDERED: ROCEPHIN 2 GM in NS 50 ML IV ONE (21:45)
[2019-11-01] MEDS ORDERED: ZITHROMAX 500 MG/NS 500 MG/250 ML IVPB IV ONE (21:48)
[2019-11-01] MEDS ORDERED: VANCOMYCIN 1 GM/NS 1 GM/250 ML IVPB IV ONE (21:49)
[2019-11-01 21:53] LABS: INR 0.94
[2019-11-01 21:54] LABS: PTT 28.8 Seconds (22.3-41.8)
--- NOTE | 2019-11-01 21:55 | PROVIDER DOCUMENTATION ---
This chart was entered by Rebecca Pool Scribe, acting as scribe for Donaldo Pimentel MD. HPI-Respiratory General - General Chief Complaint: Shortness of Breath Stated Complaint: SOB Time Seen by Provider: 11/01/19 21:14 Source: patient, family (brother), EMS Allergies/Adverse Reactions: Patient Allergies Allergy/AdvReac Type Severity Reaction Status Date / Time No Known Allergies Allergy Verified 07/20/19 13:49 Home Medications: Home Medication List Medication Instructions Recorded Confirmed Last Taken Type Bisoprolol [Zebeta] 0.5 tab PO DAILY 07/20/19 07/20/19 Unknown History Amiodarone HCl 1 tab PO DAILY 11/01/19 11/01/19 Unknown History Metoprolol Tartrate 1 tab PO BID 11/01/19 11/01/19 Unknown History - History of Present Illness-Resp Nature of Presenting Problem: Pt is a 64 yowm with history of lymphoma requiring central port and renal insufficiency complaining of increased shortness of breath,orthopnea, nausea,vomiting,and productive yellow cough since this evening. EMS gave pt 4 mg Zofran IM enroute .Patient arrives with oxygen sat in 80's. Quality of Pain: reports: tightness Severity in ED: reports: moderate Onset/Duration: reports: abrupt, just prior to arrival, 1-3 hours ago Timing: reports: still present, changing over time, getting worse Context: denies: recent foreign travel Cough Quality/Degree: reports: moderate, productive cough (yellow sputem) Current Respiratory Medication Therapy: Initiated see nurses note Modifying Factors: worse with: exertion, coughing Associated Symptoms: reports: cough, hurts to breathe, shortness of breath, short of breath, other (vomited in ambulance without aspiration). denies: fever/chills Similar Symptoms Previously?: No Recently seen or treated by another doctor?: No Review of Systems - Adult - REVIEW OF SYSTEMS - ADULT Constitutional: denies: chills, fever Eyes: reports: no symptoms reported Ears, Nose, Mouth & Throat: reports: no symptoms reported Cardiovascular: reports: see HPI, chest pain. denies: syncope Respiratory: reports: cough, shortness of breath, wheezing Gastrointestinal: reports: see HPI, vomiting Genitourinary: reports: no symptoms reported Musculoskeletal: reports: no symptoms reported Integumentary: reports: no symptoms reported Neurological: reports: no symptoms reported Psychiatric: reports: no symptoms reported Endocrine: reports: no symptoms reported Hematologic/Lymphatic: reports: no symptoms reported Allergic/Immunologic: reports: no symptoms reported All Other Systems: Reviewed and Negative Past History - Adult - PAST MEDICAL HISTORY-ADULT Review of Records: reports: Old Records Reviewed, Nursing Assessment Review, Medications Reviewed, Social history reviewed & non-contributory. Major Childhood Illnesses: reports: denies history Cardiovascular: reports: A-Fib, HTN Respiratory: reports: denies history Gastrointestinal: reports: denies history Genitourinary: reports: denies history Musculoskeletal: reports: denies history Neurological: reports: denies history Psychiatric: reports: other (mental illness unknown etiology) Endocrine/Immune: reports: denies history Other Conditions: reports: denies history - IMMUNIZATION STATUS Childhood Immunizations: See Nurse Assessment Flu Vaccine: See Nurse Assessment - FAMILY HISTORY Family History: reviewed, not pertinent - SOCIAL HISTORY Smoking: denies Substance Use: denies Living Situation: alone Physical Exam-General - PHYSICAL EXAM-ADULT Initial Vital Signs Reviewed: Yes (Rep. 27; O2 74 RA) - CONSTITUTIONAL General Appearance: alert, moderate distress, obese - EYES Eyes: PERRL/EOMI - HEAD, EARS, NOSE, MOUTH & THROAT HENMT: normocephalic/atraumatic, moist mucous membranes - NECK Neck: non-tender, full range of motion - RESPIRATORY Respiratory: decreased breath sounds (bilateral), wheezing (bilateral) - CARDIOVASCULAR Cardiovascular: normal peripheral pulses, regular rate, rhythm - GASTROINTESTINAL (ABDOMEN) Abdominal Exam: soft - MUSCULOSKELETAL Back Exam: normal inspection Extremity: normal range of motion, non-tender - SKIN Integumentary: warm/dry, other (flushed) - PSYCHIATRIC Psych/Mental Status: normal thought content, normal thought process, oriented x 3, anxious, disheveled Progress - PLAN OF CARE/RESULTS Progress/Plan/Lab Results: Vital Signs - 8 hr 11/01/19 21:10 11/01/19 21:45 11/01/19 22:15 Temperature 98.1 F Pulse Rate 90 82 72 Respiratory Rate 27 H 24 22 Blood Pressure 182/123 182/97 158/96 O2 Sat by Pulse Oximetry 74 L 98 94 L 11/01/19 22:30 11/01/19 23:00 Temperature Pulse Rate 69 70 Respiratory Rate 17 19 Blood Pressure 150/90 167/105 O2 Sat by Pulse Oximetry 95 97 Laboratory Results - last 24 hr 11/01/19 11/01/19 11/01/19 21:07 21:26 21:26 WBC 13.99 H RBC 4.50 L Hgb 14.9 Hct 47.2 MCV 104.9 H MCH 33.1 H MCHC 31.6 L RDW Std Deviation 15.5 H Plt Count 188 MPV 10.5 H Immature Gran % (Auto) 0.9 H Neut % (Auto) 79.6 H Lymph % (Auto) 13.0 L [place] % (Auto) 4.8 Eos % (Auto) 1.4 Baso % (Auto) 0.3 Immature Gran # (Auto) 0.12 H Neut # (Auto) 11.15 H Lymph # (Auto) 1.82 [place] # (Auto) 0.67 H Eos # (Auto) 0.19 Baso # (Auto) 0.04 PT INR PTT (Actin FS) Specimen Type ARTERIAL Sample Site R RADIAL pH 7.35 pCO2 46 H pO2 79 HCO3 24.3 Base Excess -0.7 Oxyhemoglobin 93.8 L ABG O2 Sat (Calculated) 21.4 ABG O2 Saturation 96.8 ABG Carboxyhemoglobin 2.10 ABG Methemoglobin 1.0 Trav Test YES Total Hemoglobin 16.2 Lactate 2.10 Liter Flow 7.0 Blood Gas Modality CANNULA Sodium Potassium Chloride Carbon Dioxide Anion Gap BUN Creatinine Estimated GFR/1.73 m2 BUN/Creatinine Ratio Glucose Calculated Osmolality Calcium Magnesium Total Bilirubin AST ALT Alkaline Phosphatase Creatine Kinase Troponin T High Sens Bgt-P-Kalqjzjradc Pept 2073 H Total Protein Albumin Globulin Albumin/Globulin Ratio Plasma Lactate 11/01/19 11/01/19 11/01/19 21:26 21:26 21:26 WBC RBC Hgb Hct MCV MCH MCHC RDW Std Deviation Plt Count MPV Immature Gran % (Auto) Neut % (Auto) Lymph % (Auto) [place] % (Auto) Eos % (Auto) Baso % (Auto) Immature Gran # (Auto) Neut # (Auto) Lymph # (Auto) [place] # (Auto) Eos # (Auto) Baso # (Auto) PT INR PTT (Actin FS) Specimen Type Sample Site pH pCO2 pO2 HCO3 Base Excess Oxyhemoglobin ABG O2 Sat (Calculated) ABG O2 Saturation ABG Carboxyhemoglobin ABG Methemoglobin Trav Test Total Hemoglobin Lactate Liter Flow Blood Gas Modality Sodium 146 H Potassium 4.0 Chloride 105 Carbon Dioxide 23 L Anion Gap 18 BUN 25 H Creatinine 2.0 H Estimated GFR/1.73 m2 34 BUN/Creatinine Ratio 13 Glucose 192 H Calculated Osmolality 300 Calcium 9.6 Magnesium 1.9 Total Bilirubin 0.80 AST 24 ALT 23 Alkaline Phosphatase 122 Creatine Kinase Troponin T High Sens Xik-T-Redvsvflbne Pept Total Protein 7.1 Albumin 4.6 Globulin 3.0 Albumin/Globulin Ratio 2.0 Plasma Lactate 1.9 11/01/19 11/01/19 11/01/19 21:26 21:26 21:26 WBC RBC Hgb Hct MCV MCH MCHC RDW Std Deviation Plt Count MPV Immature Gran % (Auto) Neut % (Auto) Lymph % (Auto) [place] % (Auto) Eos % (Auto) Baso % (Auto) Immature Gran # (Auto) Neut # (Auto) Lymph # (Auto) [place] # (Auto) Eos # (Auto) Baso # (Auto) PT 13.0 INR 0.94 PTT (Actin FS) 28.8 Specimen Type Sample Site pH pCO2 pO2 HCO3 Base Excess Oxyhemoglobin ABG O2 Sat (Calculated) ABG O2 Saturation ABG Carboxyhemoglobin ABG Methemoglobin Trav Test Total Hemoglobin Lactate Liter Flow Blood Gas Modality Sodium Potassium Chloride Carbon Dioxide Anion Gap BUN Creatinine Estimated GFR/1.73 m2 BUN/Creatinine Ratio Glucose Calculated Osmolality Calcium Magnesium Total Bilirubin AST ALT Alkaline Phosphatase Creatine Kinase 168 Troponin T High Sens 28 H Vnl-C-Rkwgfoapthn Pept Total Protein Albumin Globulin Albumin/Globulin Ratio Plasma Lactate Orders Category Date Time Status [facility] Routine AdmDCTranf 11/01/19 22:11 Active Cardiac Monitoring NOW Care 11/01/19 21:39 Active Isolation Precautions Setup NOW Care 11/01/19 22:24 Active May use PICC Line/Port a Cath ORDERED Care 11/01/19 21:16 Active NEWS Score >or=5:Order NEWS Bundle S.O. NOW Care 11/01/19 21:36 Active Resuscitation Status Routine Care 11/01/19 22:11 Ordered Vital Signs Order ROUTINE Care 11/01/19 22:11 Active Z-Document. for Tele Applied ORDERED Care 11/01/19 22:15 Active NPO Diet 11/01/19 22:15 Active cxr [CHEST-PORTABLE] [RAD] Stat Exams 11/01/19 21:10 Completed ABG [RESP] Routine Lab 11/01/19 21:07 Completed BC [BLOOD CULTURE] [BLDCUL] Stat Lab 11/01/19 21:14 Ordered BNP [PRO B-NATRIURETIC PEPTIDE] Stat Lab 11/01/19 21:26 Completed CBC WITH DIFF [HEME] Stat Lab 11/01/19 21:26 Completed CK PROFILE [SP CHEM] Stat Lab 11/01/19 21:26 Completed COMPREHENSIVE METABOLIC PANEL [CHEM] Stat Lab 11/01/19 21:26 Completed LACTATE, PLASMA [CHEM] Lab 11/02/19 00:45 Uncollected LACTATE, PLASMA [CHEM] Lab 11/02/19 03:45 Uncollected LACTATE, PLASMA [CHEM] Stat Lab 11/01/19 21:26 Completed MAGNESIUM [CHEM] Stat Lab 11/01/19 21:26 Completed PROTIME WITH INR [COAG] Stat Lab 11/01/19 21:26 Completed PTT [COAG] Stat Lab 11/01/19 21:26 Completed TROPONIN T HIGH SENSITIVITY Stat Lab 11/01/19 21:26 Completed URINALYSIS W/POSS RFLX CULT [URINALYSIS] Stat Lab 11/01/19 21:39 Uncollected 0.9% Sodium Chloride Inj [Ns] 100 ml Med 11/01/19 22:28 Discontinued .ROUTE As directed Albuterol 2.5MG/Ipratrop 0.5MG [Duoneb (A & A)] Med 11/01/19 21:13 Discontinued 3 ml INH NOW ONE Albuterol Sulfate Inhaler [Ventolin Hfa] Med 11/01/19 21:41 Discontinued 2 puff INH NOW ONE Azithromycin 500 mg/Ns [Zithromax 500 mg/Ns] Med 11/01/19 21:48 Discontinued 500 mg in 250 ml IV NOW CefTRIAXONE [Rocephin] Med 11/01/19 22:27 Discontinued 2 gm .ROUTE .STK-MED ONE CefTRIAXONE [Rocephin] 2 gm Med 11/01/19 21:45 Discontinued 0.9% Sodium Chloride Inj [Ns] 50 ml IV NOW Furosemide [Lasix] Med 11/02/19 10:00 Active 40 mg IV Q12H Furosemide [Lasix] Med 11/01/19 22:01 Discontinued 60 mg IV NOW ONE Magnesium Sulfate 1 gm/D5w Med 11/01/19 21:14 Discontinued 1 gm in 100 ml IV NOW Vancomycin 1 gm/Ns Med 11/01/19 21:49 Discontinued 1 gm in 250 ml IV NOW Aerosol Treatments Routine Oth 11/01/19 21:14 Completed Aerosol Treatments Stat Oth 11/01/19 21:14 Active MDI Treatments Stat Oth 11/01/19 21:40 Completed O2 Per Protocol Stat Oth 11/01/19 21:39 Active Oxygen Device Routine Oth 11/01/19 22:15 Active Telemetry [OM.EQ] Routine Oth 11/01/19 22:11 Active EKG [EKG] Stat Ther 11/01/19 21:13 Ordered Transfer/Admit Order [TRANSFER] Routine Transfer 11/01/19 22:16 Ordered Result Diagrams: 11/01/19 21:26 11/01/19 21:26 - REASSESSMENT Reassessment #1 Time Reassessed: 21:56 Status: improving Reassessment Comment: at bedside discussing POC Reassessment #2 Time Reassessed: 22:51 Reassessment Comment: at bedside discussing POC - EKG 1 Time of EKG reading by physician:: 21:21 EKG Read and Signed by:: Donaldo Pimentel (No STEMI) EKG Interpretation (*Must complete 3 of following elements*): Abnormal Rate: 82 Rhythm: NSR QRS: normal Comments: Possible left atrial enlargement - XRAY 1 XRAY Study: Chest Impression: See EMR Report ([facility] - [address] [place] [address] [address] [address] [facility] - [address] [place] [address] Department of Imaging Patient: ELBERT STINSON Date: 11/01/19MR#: [id number] : 1955DM [id number] Age/Sex: 64/MRoom/Bed: Loc: P.ED Ordering Physician: Gladys Jiang Family Physician: Jose Rafael Zhang MD Reason for Procedure: SOB, Hypoxia Signed CHEST-PORTABLE - 11/01/2019 INDICATION: SOB, Hypoxia COMPARISON: 08/12/2018 FINDINGS: There is a left chest port in good position. There is cardiomegaly and pulmonary vascular congestion. There are diffuse hazy interstitial infiltrates bilaterally compatible with pulmonary edema. No large pleural effusion. IMPRESSION: Congestive heart failure. Electronically signed by Jhonatan Recinos 11/01/2019 9:55 PM 11/01/192154 Interpreting Physician: Jhonatan Recinos MD Dictated Date/Time: 11/01/192154 cc: Gladys Jiang; Jose Rafael Zhang MD) - CONSULTS/PCP/HOSPITALIST Notification #1 *Consult/PCP/Hospitalist*: hospitalist Time Discussed: 22:10 Consult Disposition: Admit Departure - Departure Date of Disposition Decision: 11/01/19 Time of Disposition Decision: 23:41 DIAGNOSIS: Bilateral pulmonary infiltrates on chest x-ray, Hypoxemia CHF (congestive heart failure) Qualifiers: Heart failure type: unspecified Heart failure chronicity: unspecified Qualified Code(s): I50.9 - Heart failure, unspecified Disposition: ADMITTED INPATIENT 09 Certified Medical Emergency: Emergent Condition: Stable - Critical Care Note This patient required my direct & personal management of CC.: Yes Total Time (mins): 85 Critical Care Statement: This patient required my direct personal management to treat or rule out processes, the absence of which, could potentiallly result in sudden, clinically significant life or limb threatening deterioration. Attestation - Physician/ ZAKI Attestation Patient care was provided by Advanced Practice Provider:: No The physician spent face to face time with patient:: Yes Advanced Practice Provider documentation review:: Supervising physician onsite and consulted in the evaluation and care of this patient. The physician did have a face to face encounter with the patient. This chart was documented by the indicated scribe, (Rebecca Pool Scribe) and accurately reflects the services I performed and decisions made by me, Donaldo Pimentel MD, as attested by the provider's signature.
[2019-11-01 21:58] LABS: ALBUMIN 4.6 g/dL (3.5-5.0); CALCIUM 9.6 mg/dL (8.8-10.2); TOTAL BILIRUBIN 0.8 mg/dL (0.20-1.00); TOTAL PROTEIN 7.1 g/dL (6.3-8.3)
--- NOTE | 2019-11-01 21:58 | Diag Imaging Result Doc PS360 ---
CHEST-PORTABLE - 11/01/2019 INDICATION: SOB, Hypoxia COMPARISON: 08/12/2018 FINDINGS: There is a left chest port in good position. There is cardiomegaly and pulmonary vascular congestion. There are diffuse hazy interstitial infiltrates bilaterally compatible with pulmonary edema. No large pleural effusion. IMPRESSION: Congestive heart failure. Electronically signed by Jhonatan Recinos 11/01/2019 9:55 PM
[2019-11-01] MEDS ORDERED: LASIX IV ONE (22:01)
[2019-11-01] MEDS ORDERED: ROCEPHIN ONE (22:27)
[2019-11-01] MEDS ORDERED: NS 100 ML ONE (22:28)
[2019-11-02 00:43] LABS: URINE SOURCE CLEAN CATCH
[2019-11-02] MEDS ORDERED: ZOFRAN IV PRN (00:43)
[2019-11-02] MEDS ORDERED: TYLENOL PO PRN (00:43)
[2019-11-02 00:47] LABS: BILIRUBIN URINE NEGATIVE (NEGATIVE); BLOOD URINE NEGATIVE (NEGATIVE); COLOR STRAW; GLUCOSE URINE NEGATIVE (NEGATIVE); KETONE URINE NEGATIVE (NEGATIVE); LEUKOCYTES URINE NEGATIVE (NEGATIVE); NITRITE URINE NEGATIVE (NEGATIVE); PROTEIN URINE NEGATIVE (NEGATIVE); SP GRAVITY URINE 1.007; TURBIDITY URINE CLEAR (CLEAR); UR EPITHELIAL CELLS <10 /HPF (<10); URINE BACTERIA NEGATIVE /HPF; URINE RBC <10 /HPF (<10); URINE WBC <10 /HPF (<10); UROBILINOGEN URINE NORMAL (NORMAL)
[2019-11-02] MEDS: LOVENOX SUBQ SCH (01:50)
[2019-11-02] MEDS: MAXIPIME 1 GM in NS 50 ML IV SCH ×2 (01:50→14:39)
[2019-11-02] MEDS: ZITHROMAX 500 MG/NS 500 MG/250 ML IVPB IV SCH (01:50)
--- NOTE | 2019-11-02 02:20 | EKG Report ---
Test Performed on : 11/01/2019 9:20:40 PM Test Reason : SOB Blood Pressure : / mmHG Vent. Rate : 082 BPM Atrial Rate : 082 BPM P-R Int : 156 ms QRS Dur : 118 ms QT Int : 422 ms P-R-T Axes : 029 -15 059 degrees QTc Int : 493 ms Normal sinus rhythm. Possible Left atrial enlargement Nonspecific intraventricular conduction delay Prolonged QT Abnormal ECG When compared with ECG of 20-JUL-2019 14:05, Significant changes have occurred Unconfirmed Result
--- NOTE | 2019-11-02 06:47 | HISTORY AND PHYSICAL ---
PRIMARY CARE PROVIDER: Jose Rafael Zhang MD. CHIEF COMPLAINT: Shortness of breath. HISTORY OF PRESENT ILLNESS: This is a pleasant 64-year-old male with a history of mental retardation. His brother has power of manufacturers agent over him and takes care of him. He also has a fairly extensive medical history that includes paroxysmal atrial fibrillation, hypertension, chronic anemia, chronic gastritis, rectal prolapse, C. diff colitis, urinary tract infection, nonobstructive renal stones, metabolic syndrome, and he was recently diagnosed with lymphoma and has started having renal insufficiency. I believe the patient is currently taking chemotherapy. He sees Dr. Clare Caceres. He stated that he has had increasing shortness of breath, orthopnea, cough with yellow sputum, and at times he has coughed until he has had vomiting. Apparently he vomited in the ambulance, without aspiration. A chest x-ray was obtained in the emergency room which appears to be cardiomegaly with diffuse hazy interstitial infiltrates, plus/minus probably congestive heart failure, plus/minus bacterial pneumonia. At any rate, he will be transferred from [facility] for admission at [facility] ICU. PAST MEDICAL HISTORY: See HPI. PREVIOUS SURGICAL HISTORY: EGD and colonoscopy, polypectomy with biopsy and esophageal dilation, PEG tube placement and removal, sigmoid colon resection and rectopexy due to rectal prolapse, exploratory lap and retention sutures placed. SOCIAL HISTORY: He lives close to his brother, who takes care of him. He has five siblings. No alcohol, tobacco, or illicit drug use. FAMILY HISTORY: Mother had chronic kidney disease, dementia, and a pacemaker. Father is unknown. He at a young age. One of his brother's has been treated for mantle cell and B lymphoma. ALLERGIES: No known allergies. HOME MEDICATIONS: Amiodarone 200 mg p.o. daily, metoprolol 50 mg p.o. b.i.d. REVIEW OF SYSTEMS: A 14-point review of systems was conducted with the patient. Pertinent positives are listed above in the HPI. All other systems are reviewed and found to be negative. PHYSICAL EXAMINATION: VITAL SIGNS: Temperature 97.9, pulse 65, respirations 22, blood pressure 171/103, and oxygen saturation is 98% on 35% Venti-mask. GENERAL: A pleasant 64-year-old male lying in the ICU bed. He is alert and oriented x3. He is able to answer most questions appropriately. HEENT: The head is atraumatic an normocephalic. The pupils are equal, round, and reactive to light. Extraocular eye movement is intact. The sclerae are nonicteric. The conjunctivae are pink. The oral mucosa is moist. NECK: Supple. No JVD. No hepatojugular reflux. The trachea is midline. No cervical lymphadenopathy. CARDIAC: S1, S2 appreciated. Regular rate and rhythm. No murmurs, gallops, rubs. LUNGS: Crepitations noted throughout the bilateral airfields. No wheezing. Symmetric rise and fall with respirations. ABDOMEN: Soft, nondistended, and nontender. Bowel sounds present in all four quadrants. Normoactive. No pulsatile masses. No organomegaly. EXTREMITIES: No clubbing, cyanosis, or edema. 2+ pedal pulses bilaterally. NEUROLOGICAL: Alert and oriented x3. Follows commands. No focal motor deficits. Otherwise, nonfocal examination. SKIN: Warm, dry, and intact. DIAGNOSTIC DATA: Chest x-ray shows bilateral infiltrates consistent with pulmonary edema, plus/minus possible pneumonia. LABORATORY DATA: White blood cell count 13.99, hemoglobin 14.9, hematocrit 47.2, platelet count 188,000. ABG: pH 7.35, pCO2 46, pO2 79. Sodium 146, potassium 4, chloride 105, carbon dioxide 23, BUN 25, creatinine 2, glucose 192. ProBNP 2073. Plasma lactate 1.9. ASSESSMENT: 1. Congestive heart failure with an ejection fraction around 30% to 35%. 2. Nonischemic cardiomyopathy. 3. Lymphoma. 4. Chronic gastritis with history of rectal prolapse. 5. Hypertension. 6. Atrial fibrillation, currently in sinus rhythm. 7. Metabolic syndrome with hyperglycemia. We will check a hemoglobin A1c. 8. Questionable bacterial pneumonia. PLAN: Admit the patient to [facility]. He has diuresed fairly heavily since leaving [facility] and is breathing much, much better. Saturations are to the point where he will be able to be placed on 3 L nasal cannula. We will continue Lasix 40 mg IV q.12 h. Also, continue azithromycin and Maxipime. I believe the patient is taking chemotherapy, so we will cover Pseudomonas. Continue his amiodarone and beta jose francisco. Continue to monitor laboratory data. Strict I's and O's. Further recommendations based on the patient's clinical course. Dictated by CHELY Mar for Jeri Hennessy MD cc: CHELY Mar MD Heather Shah, MD Michael Putman, MD I personally performed exam at bedside with UNDERWRITING INTERN. Notable for BB creps, no murmurs or edema . Could not visualize and JVD. We discussed the above plan of care as noted above. May need initiation of Hydralazine and nitrates if required and increasing dose of BB. MTDD
[2019-11-02] MEDS: LOPRESSOR PO SCH ×2 (08:43→21:05)
[2019-11-02] MEDS: LASIX IV SCH ×2 (08:43→21:05)
[2019-11-02] MEDS: CORDARONE PO SCH (08:43)
[2019-11-02] MEDS ORDERED: LASIX IV SCH (10:00)
--- NOTE | 2019-11-02 12:46 | EKG Report ---
Test Performed on : 11/02/2019 00:13:28 AM Test Reason : MD ORDER Blood Pressure : / mmHG Vent. Rate : 071 BPM Atrial Rate : 071 BPM P-R Int : 164 ms QRS Dur : 112 ms QT Int : 424 ms P-R-T Axes : 035 -10 028 degrees QTc Int : 460 ms Sinus rhythm. with occasional premature ventricular complexes. Otherwise normal ECG When compared with ECG of 01-NOV-2019 21:20, (Unconfirmed) premature ventricular complexes. are now present Confirmed by Iris HILARIO, Trav Chow ([id number]) on 11/04/2019 9:09:32 AM
--- NOTE | 2019-11-02 14:26 | PROGRESS NOTE ---
DATE: 11/02/2019 The patient admitted with pneumonia, acute on chronic systolic congestive heart failure, atrial fibrillation, and acute kidney injury. Also recently diagnosed with lymphoma and currently on chemotherapy. Initial imaging most consistent with CHF exacerbation, although some aspect of pneumonia cannot be ruled out entirely. The patient's last known EF 35% with mild pulmonary hypertension and moderate to severe mitral regurgitation. On antibiotics with cefepime and azithromycin, which we will continue for now. On b.i.d. IV Lasix, which we will also continue. Creatinine up a little from baseline, may be cardiorenal syndrome, but we will need to monitor closely in the setting of diuresis.
[2019-11-03] MEDS: ZITHROMAX 500 MG/NS 500 MG/250 ML IVPB IV SCH ×2 (00:34→05:09)
[2019-11-03] MEDS: MAXIPIME 1 GM in NS 50 ML IV SCH ×2 (00:35→14:57)
[2019-11-03] MEDS: LOVENOX SUBQ SCH (00:35)
[2019-11-03 07:14] LABS: BASO# 0.05 X1000 (0.0-0.2); BASO% 0.6 % (0.0-0.8); EOS# 0.32 X1000 (0.0-0.7); EOS% 3.7 % (0.0-10.0); HEMOGLOBIN 15.7 g/dL (14.0-18.0); IMM GRAN# 0.04 X1000 (0.0-0.04); IMM GRAN% 0.5 % (0.0-0.5); LYMPH# 1.33 X1000 (1.2-3.4); LYMPH% 15.4 % (20.5-51.1); MCHC 31.4 g/dL (33-37); MONO% 8.1 % (1.7-9.3); MPV 10.9 FL (7.4-10.4); NEUT% 71.7 % (42.2-75.2); PLT 172 X1000 (130-400); RBC 4.76 XMIL (4.7-6.1); RDW 15.8 % (11.5-14.5); WBC 8.64 X1000 (4.8-10.8)
[2019-11-03 07:19] LABS: CALCIUM 9.4 mg/dL (8.8-10.2); CREATININE 1.7 mg/dL (0.7-1.2); POTASSIUM 3.7 mmol/L (3.5-5.1)
[2019-11-03] MEDS: LASIX IV SCH ×2 (09:06→21:55)
[2019-11-03] MEDS: LOPRESSOR PO SCH ×2 (09:06→21:56)
[2019-11-03] MEDS: CORDARONE PO SCH (09:06)
--- NOTE | 2019-11-03 12:36 | PROGRESS NOTE ---
DATE: 11/03/2019 INTERVAL HISTORY: The patient's respiratory status continues to improve. Oxygen requirements are coming down, down to 2 to 3 L by nasal cannula at this point. No acute events overnight. Remains afebrile. No new complaints. REVIEW OF SYSTEMS: Twelve point review of systems negative as per interval history, although the patient is not a great historian. LABS: WBC 8.6, hemoglobin 15.7, hematocrit 50, platelets 172,000. Sodium 146, potassium 3.7, BUN 32, creatinine 1.7. TSH 3.5. Urinalysis unremarkable. VITALS: T-max 99.2 degrees, pulse 85, respiratory rate 18, blood pressure 104/85, O2 saturation 97% on 3 L by nasal cannula. PHYSICAL EXAMINATION: General: No acute distress. Vitals: As above. HEENT: Normocephalic, atraumatic. Moist mucous membranes. No cervical adenopathy. Cardiovascular: Slightly irregular rhythm but normal rate currently. Pulmonary: Still some bibasilar crackles but improving from previous. Upper lungs essentially clear to auscultation bilaterally. Abdomen: Soft, nontender, nondistended. Bowel sounds positive. Extremities: Peripheral pulses intact. Trace to 1+ pitting edema in bilateral lower extremities. Neurologic: Cranial nerves grossly intact. No focal deficits identified. Psychiatric: Patient with chronically slightly flat affect, known mental retardation of uncertain degree but suspect moderate. The patient is pretty cooperative and answers most questions appropriately. ASSESSMENT AND PLAN: 1. Pneumonia, acute on chronic systolic congestive heart failure. Oxygen requirements are down to pretty minimal. May be able to come off entirely today. We will wean it and see. Responding well to diuresis. We will continue Lasix 40 mg intravenous twice a day and antibiotics with cefepime and azithromycin. If he continues to improve, then may be able to consider discharge home with home health tomorrow. 2. Acute kidney injury. Baseline not entirely certain but it has been at least as low as 1.4 within the last year. Creatinine 2.0 on admission. Suspect some level of cardiorenal syndrome as his creatinine has actually improved with aggressive diuresis. Down to 1.7 today. Continue to monitor kidney function. 3. Mental retardation. Patient with known mental retardation, likely moderate. He is quite cooperative though and pleasant. 4. Paroxysmal atrial fibrillation. Has been in and out of atrial fibrillation a little bit while he has been here but normal sinus rhythm for the most part. Continue his amiodarone and metoprolol, and monitor. 5. Recent diagnosis of lymphoma. The patient has recently been on chemotherapy with Dr. Caceres. 6. Possible urinary tract infection. On antibiotics as above. We will see what cultures grow out. 7. Mild pulmonary hypertension and moderate to severe mitral regurgitation, known.
[2019-11-04] MEDS: LOVENOX SUBQ SCH (00:43)
[2019-11-04] MEDS: MAXIPIME 1 GM in NS 50 ML IV SCH ×2 (02:43→13:53)
[2019-11-04] MEDS: ZITHROMAX 500 MG/NS 500 MG/250 ML IVPB IV SCH (02:50)
--- NOTE | 2019-11-04 07:00 | Diag Imaging Result Doc PS360 ---
EXAM: CHEST-PORTABLE INDICATION: chf. ? Pneumonia TECHNIQUE: One view COMPARISON: 11/01/2019 FINDINGS: Left chest port is in stable position. The pulmonary venous congestion and interstitial edema seen on the previous study has grossly resolved. No new consolidation is identified. Cardiac silhouette is stable. IMPRESSION: Interval improvement of pulmonary venous congestion and interstitial edema to gross resolution. Electronically signed by Erasto Ibarra 11/04/2019 6:58 AM
[2019-11-04 07:01] LABS: BASO# 0.03 X1000 (0.0-0.2); BASO% 0.4 % (0.0-0.8); EOS% 6.2 % (0.0-10.0); HEMOGLOBIN 15.5 g/dL (14.0-18.0); IMM GRAN# 0.05 X1000 (0.0-0.04); IMM GRAN% 0.6 % (0.0-0.5); LYMPH# 1.39 X1000 (1.2-3.4); LYMPH% 17.1 % (20.5-51.1); MCH 32.6 PG (27-31); MONO# 0.66 X1000 (0.11-0.59); MONO% 8.1 % (1.7-9.3); MPV 10.4 FL (7.4-10.4); NEUT# 5.48 X1000 (1.4-6.5); NEUT% 67.6 % (42.2-75.2); PLT 194 X1000 (130-400); RBC 4.76 XMIL (4.7-6.1); RDW 15.8 % (11.5-14.5); WBC 8.11 X1000 (4.8-10.8)
[2019-11-04 07:26] LABS: CALCIUM 9.3 mg/dL (8.8-10.2); CREATININE 2.1 mg/dL (0.7-1.2); POTASSIUM 3.7 mmol/L (3.5-5.1)
[2019-11-04] MEDS: LASIX IV SCH (09:17)
[2019-11-04] MEDS: LOPRESSOR PO SCH ×2 (09:17→20:57)
[2019-11-04] MEDS: CORDARONE PO SCH (09:17)
--- NOTE | 2019-11-04 14:18 | PROGRESS NOTE ---
DATE: 11/04/2019 SUBJECTIVE: I have seen and examined Mr. Delarosa today. Mr. Delarosa refers to be doing well. He was not on any supplemental oxygen. OBJECTIVE: Vital signs: Blood pressure is 103/67, pulse of 43, it was 78 earlier on today, I am not sure why is this low. Respiration is 17, temperature 97.6 degrees, patient is saturating 97% on room air. General: Mr. Delarosa is a 64-year-old gentleman. He is in bed, no distress. He is not on any supplemental oxygen. HEENT: Mucosa is pink and moist. Anicteric. Acyanotic. Neck: Supple. Respiratory: There is good air entry bilaterally. A few crackles posteriorly. Cardiovascular: Regular rate and rhythm. No murmurs, no rubs, no gallops. Gastrointestinal: Abdomen is soft. There is an old scar in the mid anterior abdominal wall. Bowel sounds present. Central nervous system: Patient is awake, alert. He follows basic commands. He seems to stutter a little bit when he is talking, but he is very cooperative. LABORATORY DATA: WBC is down to 8.11. Rest of CBC is unremarkable. Chemistry is also reviewed. Creatinine is slightly up to 2.1. The patient has a baseline creatinine of about 1.4. CURRENT MEDICATIONS: Have all been reviewed and no changes. IMAGING: A chest x-ray this morning shows interval improvement of pulmonary venous congestion. ASSESSMENT AND PLAN: 1. Acute hypoxemic respiratory failure on presentation, improved. Patient is now off supplemental oxygen. 2. Pulmonary edema secondary to congestive heart failure exacerbation. 3. History of nonischemic dilated cardiomyopathy with ejection fraction of 31 to 33 percent. 4. History of mantle cell lymphoma. Patient follows up with Dr. Caceres. 5. Paroxysmal atrial fibrillation, currently rate controlled. We will continue with his amiodarone and metoprolol. 6. Acute on chronic renal failure. The patient seems to be currently euvolemic. He is off supplemental oxygen, so I am going to transition him to oral diuretic instead of the IV. 7. Suspected multifocal pneumonia. The patient was started on IV antibiotics. So far, blood cultures have been negative. We are going to continue with the current antimicrobial coverage. cc: Kurt Tao MD
[2019-11-05] MEDS: MAXIPIME 1 GM in NS 50 ML IV SCH ×2 (02:00→14:32)
[2019-11-05] MEDS: LOVENOX SUBQ SCH (02:00)
[2019-11-05] MEDS: ZITHROMAX 500 MG/NS 500 MG/250 ML IVPB IV SCH (02:39)
[2019-11-05 07:11] LABS: BASO# 0.05 X1000 (0.0-0.2); BASO% 0.7 % (0.0-0.8); EOS# 0.43 X1000 (0.0-0.7); EOS% 5.7 % (0.0-10.0); HEMOGLOBIN 15.3 g/dL (14.0-18.0); IMM GRAN# 0.05 X1000 (0.0-0.04); IMM GRAN% 0.7 % (0.0-0.5); LYMPH# 1.41 X1000 (1.2-3.4); LYMPH% 18.6 % (20.5-51.1); MCHC 31.9 g/dL (33-37); MCV 103.7 FL (81-99); MONO# 0.63 X1000 (0.11-0.59); MONO% 8.3 % (1.7-9.3); MPV 10.5 FL (7.4-10.4); NEUT# 5.01 X1000 (1.4-6.5); PLT 186 X1000 (130-400); RBC 4.63 XMIL (4.7-6.1); RDW 15.8 % (11.5-14.5); WBC 7.58 X1000 (4.8-10.8)
[2019-11-05 07:37] LABS: CALCIUM 9.5 mg/dL (8.8-10.2); POTASSIUM 3.5 mmol/L (3.5-5.1)
[2019-11-05] MEDS ORDERED: LASIX PO SCH (09:00)
[2019-11-05] MEDS ORDERED: ALDACTONE PO SCH (09:00)
[2019-11-05] MEDS: CORDARONE PO SCH (10:37)
[2019-11-05] MEDS: LOPRESSOR PO SCH (10:37)
[2019-11-05 12:02] VITALS: BP 109/76
[2019-11-05] MEDS ORDERED: LACTULOSE PO ONE (13:58)
--- NOTE | 2019-11-05 17:26 | DISCHARGE SUMMARY ---
ADMISSION DATE: 11/01/2019 DISCHARGE DATE: 11/05/2019 DISPOSITION: Home. FOLLOWUP: 1. Dr. Mantilla. 2. Dr. Zhang. 3. Dr. Cameron. CONSULTATION: None. INVASIVE PROCEDURES: None. IMAGING STUDIES OF SIGNIFICANCE: A chest x-ray on admission did show cardiomegaly with pulmonary vascular congestion, diffuse hazy interstitial infiltrates compatible with pulmonary edema. Impression was congestive heart failure. A repeat x-ray done 3 days later showed interval improvement of pulmonary venous congestion and interstitial edema to gross resolution. ADMISSION DIAGNOSIS: 1. Congestive heart failure. Ejection fraction of 30 to 35 percent. 2. Nonischemic cardiomyopathy. Lymphoma. 1. Atrial fibrillation. 2. Metabolic syndrome. DIAGNOSES AT THE TIME OF DISCHARGE: 1. Acute hypoxemic respiratory failure on presentation improved. 2. Pulmonary edema secondary to congestive heart failure exacerbation. 3. History of nonischemic cardiomyopathy with systolic dysfunction, ejection fraction of 31% to 35%. 4. History of mantle cell lymphoma, patient follows up with Dr. Caceres. 5. Paroxysmal atrial fibrillation currently rate controlled. 6. Acute on chronic renal failure. Patient advised to follow up with Dr. Mantilla. 7. Suspected multifocal pneumonia. Patient was started on antibiotics. White cell count got better and became normalized. 8. Constipation. Patient has been started on bowel regimen. DISCHARGE MEDICATIONS: 1. Amiodarone 200 mg p.o. daily. 2. Metoprolol 50 mg b.i.d. 3. Spironolactone 12.5 p.o. daily. 4. Levofloxacin 500 p.o. daily. 5. MiraLAX 17 g p.o. daily. 6. Bailey-Colace 1 tablet b.i.d. 7. Lactobacillus 1 tablet p.o. daily. PRESENTING COMPLAINT: Shortness of breath. HISTORY OF PRESENT COMPLAINT: Mr. Delarosa 64-year-old male with history of mental retardation was brought in to the emergency room by the family because of shortness of breath. Patient was evaluated, was found to be in respiratory failure with initial O2 saturation of about 74%. He was admitted for further medical care. HOSPITAL COURSE: Mr. Delarosa was initially started on supplemental oxygen, started on IV antibiotics and diuretic therapy. Over the course of the hospital stay his breathing became remarkably improved and he did not need any more supplemental oxygen and he continued to saturate well. His white cell count which was 13.99 on admission got normalized during the hospital course. His creatinine which had also gone up to 2.1 slightly came down to 2. Patient has been advised to follow up with Nephrology as outpatient. Mr. Delarosa was also evaluated by physical therapy after this morning, he was able to ambulate 75 feet with assistance. Today he feels a lot better. We think he is stable enough to be discharged. He will need to follow up with Cardiology. We have added spironolactone to his medications. He is not on any DEMARCO inhibitor or ARBS because of the renal abnormality that is something that will need to be addressed at a later date once the kidney function gets stabilized or get normalized. All the discharge instructions discussed with him. TIME SPENT: 35 minutes. cc: Kurt Tao MD MTDD
== END 2019-11-05 17:01 | disposition home or self-care (01) | DRG 871 ==
LOC: P.ED 21:06 → ICU 23:03 → SUATTDRO 23:03 → 3N 11-02 11:06
PROVIDERS: ATTEND Internal Medicine